=== PATIENT | female | born 1955 | race Caucasian/White ===

== ENCOUNTER 2016-11-22 06:58 | Day surgery (SDC) | payer BC ==
[~2016-11-22 06:58] MED LIST: Lactated Ringers 1,000 ML IV SCH; Lidocaine 1%/Sod Bicarbonate in NS 8.4% 1 ML Syringe IV PRN; Sodium Chloride 0.9% 10 ML Syringe FLUSH PRN
[2016-11-22] MEDS ORDERED: Lidocaine 1% 2 ML SDV ONE (07:34)
[2016-11-22] MEDS ORDERED: Propofol 200 MG/20 ML SDV ONE ×3 (07:34→08:52)
[2016-11-22] MEDS ORDERED: fentaNYL 100 MCG/2 ML SDV ONE (07:35)
[2016-11-22] MEDS ORDERED: Midazolam 1 MG/ML 2 ML SDV ONE (07:35)
--- NOTE | 2016-11-22 07:35 | PCM.PREANE ---
Preanesthetic Assessment - ANESTHESIA/TRANSFUSION/FAMILY HX Anesthesia/Transfusion History: No Prior Transfusion(s), Prior Anesthesia ( patient did get admitted for low SpO2 after cholecystectomy. 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 No CPAP at home.), shortness of breath, wheezing Cardiovascular: Reports: no symptoms, dyspnea on exertion GI: Reports: no symptoms (hiatal hernia) Other: Reports: easy bruising, diabetes (pre-diabetic) - PHYSICAL ASSESSMENT HR: 78 O2 Sat by Pulse Oximetry: 93 RR: 16 BP: 115/63 Temp: 36.6 C Height: 1.65 m Weight: 118 kg NPO Status Date: 11/21/16 NPO Status Time: 23:30 ASA Class: 3 Mental Status: alert & oriented x3 Airway Class: Mallampati = 2 Dentition: Reports: normal dentition, caries Thyro-Mental Finger Breadths: 3 Mouth Opening Finger Breadths: 3 ROM/Head Extension: full Respiratory Status: lungs clear to auscultation bilaterally Cardiovascular Status: regular rate & rhythm, normal S1, S2, no murmur, blood pressure WNL - IMAGING/EKG Impressions: EKG: sinus rhythm rate 53 or sinus ectopic atrial bradycardia/ left axis deviation - ALLERGIES Allergies/Adverse Reactions: Allergies Allergy/AdvReac Type Severity Reaction Status Date / Time No Known Allergies Allergy Verified 11/21/16 14:53 - ANESTHESIA PLAN Preop Beta Bryson: No Anesthesia Type Planned: MAC - ACKNOWLEDGEMENTS Pt an appropriate candidate for the planned anesthesia: Yes Alternatives and risks of anesthesia discussed w pt/guardian: Yes Pt/Guardian understands and agree with anesthesia plan: Yes PreAnesthesia Questionnaire - Past Health History Medical/Surgical History: Denies Medical/Surgical History HEENT History: Reports: Glaucoma, Impaired vision Cardiovascular History: Reports: None, SOB on exertion Respiratory History: Reports: Sleep apnea Other Respiratory History: Tobacco use history (40 years) Gastrointestinal History: Reports: GERD, Other (see below) Other Gastrointestinal History: History of diverticulitis in May 2015 - No prior colonoscopy. 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 OB/BYN History: yeast infections 1-2 times a year Musculoskeletal History: Reports: Arthritis Neurological History: Reports: None Psychiatric History: Reports: None Endocrine/Metabolic History: Reports: Obesity/BMI 30+ Hematologic History: Reports: None Immunologic History: Reports: None Oncologic (Cancer) History: Reports: None Dermatologic History: Reports: Psoriasis - Infectious Disease History Infectious Disease History: Reports: Chicken pox, Measles, Mumps - Past Surgical History Head Surgeries/Procedures: Reports: None HEENT Surgical History: Reports: Oral surgery, Other (see below) Other HEENT Surgeries/Procedures: glaucoma sx 3 yrs ago. wisdom teeth extraction Female Surgical History: Reports: section Musculoskeletal Surgical History: Reports: Shoulder surgery, Other (see below) Other Musculoskeletal Surgeries/Procedures:: Dr. Satya Trammell shoulder surgery. R bunionectomy Dermatological Surgical History: Reports: None - SUBSTANCE USE Smoking Status *Q: Former Smoker Tobacco Use Within Last Twelve Months: Cigarettes Second Hand Smoke Exposure: Yes Recreational Drug Use History: No - HOME MEDS Home Medications: Home Meds Melaluca Multi Meño. 1 pkt PO BID 06/09/16 [History] Cholecalciferol (Vitamin D3) [Vitamin D3] 1 tab PO DAILY 11/21/16 [History] Vitamin K2 1 tab PO DAILY 11/21/16 [History] - CURRENT (IN HOUSE) MEDS Current Meds: Current Medications Lactated Ringer's (Ringers, Lactated) 1,000 mls @ 125 mls/hr IV ASDIRECTED CHIP Stop: 11/22/16 23:00 Lidocaine/Sodium Bicarbonate (Buffered Lidocaine 1% In Ns 8.4%) 0.25 ml IV ONETIME PRN PRN Reason: Prior to IV Start Stop: 11/22/16 18:00 Sodium Chloride (Saline Flush) 10 ml FLUSH ASDIRECTED PRN PRN Reason: Keep Vein Open Stop: 11/22/16 18:00 Discontinued Medications Fentanyl (Sublimaze) Confirm Administered Dose 100 mcg .ROUTE .STK-MED ONE Stop: 11/22/16 07:36 Lidocaine HCl (Lidocaine 1%) Confirm Administered Dose 6 ml .ROUTE .STK-MED ONE Stop: 11/22/16 07:35 Midazolam HCl (Versed 1 Mg/Ml) Confirm Administered Dose 2 mg .ROUTE .STK-MED ONE Stop: 11/22/16 07:36 Propofol (Diprivan 20 Ml) Confirm Administered Dose 200 mg .ROUTE .STK-MED ONE Stop: 11/22/16 07:35
[2016-11-22] MEDS ORDERED: Lactated Ringers 1,000 ML ONE (09:09)
--- NOTE | 2016-11-22 09:09 | PCM48HPAN ---
Post Anesthesia Note - EVALUATION WITHIN 48HRS OF ANESTHETIC Vital Signs in Normal Range: Yes Patient Participated in Evaluation: Yes Respiratory Function Stable: Yes Airway Patent: Yes Cardiovascular Function Stable: Yes Hydration Status Stable: Yes Pain Control Satisfactory: Yes Nausea and Vomiting Control Satisfactory: Yes Mental Status Recovered: Yes
[2016-11-22 09:34] VITALS: BP 113/70
--- NOTE | 2016-11-22 10:07 | PCM.OPNOTE ---
- General Post-Op/Procedure Note Date of Surgery/Procedure: 11/22/16 Operative Procedure(s): 1. Diagnostic EGD with cold forceps biopsy. 2. Diagnostic colonoscopy past the splenic flexure Pre Op Diagnosis: Epigastric pain, constipation with change in bowel habits Post-Op Diagnosis: 1. Bile reflux gastritis. 2. Diverticulosis Anesthesia Technique: [facility] [place] Primary Surgeon: Marina Gonzalez Anesthesia Provider: Leandra Martini Pathology: 1. Small bowel biopsy 2. Antral biopsy 3. Distal esophageal biopsy Fluid Replacement, Intraop: 2,000 (mL crystalloid ) EBL in mLs: 1 Complications: None Condition: Good Free Text/Narrative:: INDICATION FOR PROCEDURE: The patient is a 61-year-old woman who was referred to me by STEPHANIE Jaffe for evaluation for epigastric pain, changes in bowel habits with constipation and lower abdominal pain. She has not had a prior colonoscopy. Performing a colonoscopy and EGD and the associated risks of the procedures had been discussed with the patient. The patient found these risks acceptable and agreed to proceed. DESCRIPTION OF PROCEDURE: The patient was taken to the operating room and placed in the left lateral decubitus position. After induction of adequate sedation, a bite block was placed. A standard Olympus gastroscope was inserted into the oropharynx and guided down the esophagus without difficulty. The gastroesophageal junction was appreciated at 39 cm from the teeth. There was no evidence of stricture or esophageal ulcerations. The scope was advanced into the stomach, and there was bile reflux with associated gastritis. The scope was passed into the proximal jejunum and the duodenum which were unremarkable. There were no petechiae or ulcerations. The proximal jejunum was grossly normal in appearance. Multiple cold forceps biopsies were obtained of the proximal jejunum and duodenum. The scope was withdrawn into the antrum, and additional cold forceps biopsies were obtained. The remainder of the gastric body was examined, and there were no other abnormalities. The scope was retroflexed, and there was no evidence of hiatal hernia. The scope was straightened and withdrawn to the GE junction. Additional cold forceps biopsies were obtained of the distal esophagus. The scope was withdrawn through the remainder of the esophagus and no further abnormalities were noted. The posterior oropharynx was grossly normal in appearance. The scope was fully withdrawn and attention was then turned to the colonoscopy. A digital rectal exam was performed which was unremarkable. A standard adult Olympus colonoscope was inserted into the rectum and guided under direct visualization to the ascending colon. The patient was placed in a supine position and counter pressure was utilized, but the cecum was not able to be reached, it was seen in the distance. There were no obvious lesions of the ascending colon. The scope was then slowly withdrawn through the colon. The quality of the prep was good. There was no evidence of angiodysplasias or mass lesions. Diverticulosis was present primarily in the sigmoid colon. The scope was withdrawn into the rectum and retroflexed. There was no significant prominence of the patient's internal hemorrhoids. The scope was straightened, the colon was desufflated, and the scope was withdrawn. The patient was awakened from sedation and transferred to the recovery room in stable condition having tolerated the procedure well. POSTOPERATIVE PLAN: The patient should have a repeat colonoscopy in 1 year due to inability to complete visualization of the ascending colon. The patient will follow up in approximately 7-10 days to discuss pathology of the EGD and how their symptoms are progressing. The patient is to continue MiraLAX PRN. She and I discussed hernia repair, she does have an incisional hernia and she wants to think about repair in the future. I have asked the patient to follow a GERD\ gastritis diet. The patient is to call with any worsening of symptoms or questions prior to the appointment.
== END 2016-11-22 10:10 | disposition home or self-care (01) ==
LOC: JD.SDS 06:58
PROVIDERS: ATTEND Surgery
PROC: 0DBP8ZX Excision of Rectum, Via Natural or Artificial Opening Endoscopic, Diagnostic (ICD-10-PCS; principal; 2016-11-22)
PROC: 0DB88ZX Excision of Small Intestine, Via Natural or Artificial Opening Endoscopic, Diagnostic (ICD-10-PCS; 2016-11-22)
PROC: 0DB38ZX Excision of Lower Esophagus, Via Natural or Artificial Opening Endoscopic, Diagnostic (ICD-10-PCS; 2016-11-22)
PROC: 0DB68ZX Excision of Stomach, Via Natural or Artificial Opening Endoscopic, Diagnostic (ICD-10-PCS; 2016-11-22)
DX: R19.4 Change in bowel habit (principal); R10.13 Epigastric pain; K29.60 Other gastritis without bleeding; K44.9 Diaphragmatic hernia without obstruction or gangrene; K57.30 Diverticulosis of large intestine without perforation or abscess without bleeding; Z87.891 Personal history of nicotine dependence; H40.9 Unspecified glaucoma; R73.03 Prediabetes
CPT/HCPCS: 43239; 45380; 88305; J2250; J3010; J7120; J2704

== ENCOUNTER 2019-06-09 19:56 | Emergency (ER) | payer BC ==
[2019-06-09 20:05] VITALS: BP 145/110; PULSE 82
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
[2019-06-09] MEDS ORDERED: Acetaminophen/oxyCODONE 325-5 MG Tab PO ONE (21:03)
[2019-06-09] MEDS ORDERED: Ondansetron 4 MG Tab.DIS PO ONE (21:03)
--- NOTE | 2019-06-14 06:39 | CR ---
Right humerus: Two views of the right humerus were obtained. Comparison: No prior humerus exam. Mild degenerative change is seen within the elbow as well as within the glenohumeral joint. No acute fracture or other bony abnormality is appreciated. Osteopenia is present. Impression: 1. Degenerative change and osteopenia. 2. Nothing acute is identified on right humerus exam. Diagnostic code #2
--- NOTE | 2019-06-14 06:39 | CR ---
Right tibia and fibula: AP and lateral views of the right tibia and fibula were obtained. Comparison: No previous study. Soft tissue calcifications are seen. Osteopenia is noted. No fracture or other abnormality is appreciated. Impression: 1. Findings as noted above which appear nonacute. No fracture or other abnormality is seen. Diagnostic code #2
--- NOTE | 2019-06-14 06:39 | CT ---
Head CT Technique: Multiple axial sections through the brain were obtained. Intravenous contrast was not utilized. Comparison: No prior intracranial imaging is available. Findings: Ventricles along with basal cisterns and sulci over the convexities are within normal limits for the patient's age. No abnormal parenchymal densities are seen. No evidence of intracranial hemorrhage. No midline shift or mass effect is seen. Mild soft tissue swelling noted within the right frontal scalp with slight soft tissue hematoma. Bone window settings were reviewed which show no acute calvarial abnormality. Visualized paranasal sinuses show nothing acute. Mastoid sinuses also showed nothing acute. Impression: 1. Scalp injury as noted above. 2. No acute intracranial abnormality is identified. Diagnostic code #2 I agree with preliminary report from [facility], finalized on 06/09/19, 11:01 PM Central Time
--- NOTE | 2019-06-14 06:39 | CR ---
Pelvis: AP view of the pelvis was obtained. Comparison: No previous exam. Severe joint space narrowing is noted within the left hip. Mild joint space narrowing is seen within the right hip. Bony structures are osteopenic. Sacroiliac joints are within normal limits. Nothing acute is seen. Impression: 1. Severe degenerative change within the left hip with mild degenerative change being noted within the right hip. 2. Osteopenia. No acute abnormality is identified on AP pelvis exam. Diagnostic code #2
== END 2019-06-09 23:26 | disposition home or self-care (01) ==
LOC: JD.ED 19:56
DX: S00.03XA Contusion of scalp, initial encounter (principal); S80.11XA Contusion of right lower leg, initial encounter; S70.01XA Contusion of right hip, initial encounter; S40.021A Contusion of right upper arm, initial encounter; E66.9 Obesity, unspecified; Z68.41 Body mass index [BMI] 40.0-44.9, adult; Z79.899 Other long term (current) drug therapy; W01.10XA Fall on same level from slipping, tripping and stumbling with subsequent striking against unspecified object, initial encounter
CPT/HCPCS: 70450; 72170; 73060; 73590; 99284; A9270

== ENCOUNTER 2019-06-15 14:32 | Emergency (ER) | payer BC ==
[2019-06-15 14:47] VITALS: BP 132/70; PULSE 87
[2019-06-15] MEDS ORDERED: Acetaminophen/HYDROcodone 325-5 MG Tab PO ONE (17:41)
[2019-06-15] MEDS ORDERED: Cephalexin 500 MG Cap PO STA (17:44)
--- NOTE | 2019-06-15 17:45 | EDM.PDOC ---
ED HPI GENERAL MEDICAL PROBLEM - General Chief Complaint: Lower Extremity Injury/Pain Stated Complaint: R LEG REDNESS AND SWELLING Time Seen by Provider: 06/15/19 16:59 Source of Information: Reports: Patient, Family (Daughter), Old Records (ED visit 06/09/2019) History Limitations: Reports: No Limitations - History of Present Illness INITIAL COMMENTS - FREE TEXT/NARRATIVE: Mrs. Carmona is a very pleasant 63-year-old woman who states that she fell on 06/09/2019, injuring her right lower extremity. She states that her leg began to swell right after the fall. She was seen in this ED on that date, where a workup included a CT of her head without contrast, and x-rays of her right humerus, pelvis, and right tib-fib. The CT scan of her head was negative for an acute injury, and all of the x-rays were negative for fractures, but all demonstrated osteopenia. The x-ray of her pelvis found severe left hip degenerative joint disease, and mild right hip degenerative joint disease. The patient was told that her right lower extremity would likely swell more before it decreased. The patient started taking a baby aspirin and ibuprofen for her discomfort. She has not followed up since her injury, because, she states, the tables in her doctor's office are too high. The patient now returns to the ED because her right lower extremity has in fact increased in swelling. The patient denies any recent chest pain, palpitations, or dyspnea. The patient's PCP is Dr. Maco Chavez. Right Lower Leg Pain Score (Numeric/FACES): 8 - Related Data Allergies Allergy/AdvReac Type Severity Reaction Status Date / Time No Known Allergies Allergy Verified 06/15/19 14:46 Home Meds: Home Meds Melaluca Multi Meño. 1 pkt PO BID 06/09/16 [History] Cholecalciferol (Vitamin D3) [Vitamin D3] 1 tab PO DAILY 11/21/16 [History] Vitamin K2 1 tab PO DAILY 11/21/16 [History] oxyCODONE HCl/Acetaminophen [Percocet 5-325 mg Tablet] 1 - 2 each PO Q4H PRN # 20 tablet 06/09/19 [Rx] Acetaminophen/HYDROcodone [[place]bridge 325-5 MG] 1 - 2 tab PO Q6H PRN #16 tablet 06/15 [Rx] Cephalexin [Keflex] 1 cap PO Q6H #20 capsule 06/15/19 [Rx] Past Medical History HEENT History: Reports: Glaucoma, Impaired Vision Respiratory History: Reports: Sleep Apnea (noncompliant with nightly CPAP) Gastrointestinal History: Reports: Diverticulosis (diverticulitis) Genitourinary History: Reports: Urinary Incontinence (stress incontinence) 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: Musculoskeletal History: Reports: Arthritis Endocrine/Metabolic History: Reports: Obesity/BMI 30+ Dermatologic History: Reports: Psoriasis - Infectious Disease History Infectious Disease History: Reports: Chicken Pox, Measles, Mumps - Past Surgical History HEENT Surgical History: Reports: Laser Surgery (bilateral, for glaucoma), Oral Surgery (wisdom teeth extraction) GI Surgical History: Reports: Cholecystectomy (May 2016), Colonoscopy (x 1 or 2) Female Surgical History: Reports: Section (x 1) Musculoskeletal Surgical History: Reports: Shoulder Surgery (open, 2 dislocations), Other (See Below) (Left bunionectomy) Social & Family History - Family History Family Medical History: Noncontributory HEENT: Reports: Hearing Impairment GI: Reports: Cholelithiasis Endocrine/Metabolic: Reports: Hyperthyroidism Other Endocrine/Metabolic Family History: mom Hematologic: Reports: None Dermatologic: Reports: Psoriasis Other Dermatologic Family History: brother Other Oncologic Family History: dad sarcoma - Tobacco Use Smoking Status *Q: Former Smoker Years of Tobacco use: 43 Packs/Tins Daily: 1 Month/Year Tobacco Last Used: Quit 2015 - Caffeine Use Caffeine Use: Reports: Coffee - Alcohol Use Alcohol Use History: No - Recreational Drug Use Recreational Drug Use: No - Living Situation & Occupation Living situation: Reports: , with Spouse Occupation: Unemployed Review of Systems - Review of Systems Review Of Systems: ROS reveals no pertinent complaints other than HPI. ED EXAM, GENERAL - Physical Exam Exam: See Below Exam Limited By: No Limitations General Appearance: Alert, WD/WN, No Apparent Distress Eye Exam: Bilateral Eye: EOMI, Normal Inspection Ears: Normal External Exam, Hearing Grossly Normal Nose: Normal Inspection Throat/Mouth: Normal Inspection, Normal Lips, Normal Voice, No Airway Compromise Head: Normocephalic, Other (Ecchymosis noted to the right forehead) Neck: Normal Inspection, Full Range of Motion Respiratory/Chest: No Respiratory Distress, Lungs Clear, Normal Breath Sounds, No Accessory Muscle Use, Chest Non-Tender. No: Decreased Breath Sounds, Crackles, Rhonchi, Wheezing, Stridor, Prolonged Expiration Cardiovascular: Normal Peripheral Pulses, Regular Rate, Rhythm, No Gallop, No JVD, No Murmur, No Rub Peripheral Pulses: 2+: Posterior Tibial (L), Posterior Tibial (R), Dorsalis Pedis (L), Dorsalis Pedis (R), 4+: Radial (L), Radial (R) GI/Abdominal: Normal Bowel Sounds, Soft, Non-Tender, No Organomegaly, No Distention, No Abnormal Bruit, No Mass (Female) Exam: Deferred Rectal (Female) Exam: Deferred Back Exam: Normal Inspection, Full Range of Motion, NT Extremities: Normal Capillary Refill, Other (Extensive hematoma to the medial and posterior right thigh, as well as some hematoma noted to the right calf, and extravasation of blood down to the right foot. There is considerable swelling to the right lower extremity, especially to the right leg and right foot. There is warmth and erythema to the right leg, when compared to the left, with tenderness to palpation of the right lower extremity. Neurovascular status of the right lower extremity appears to be intact.) Neurological: Alert, Oriented, Normal Cognition, No Motor/Sensory Deficits Psychiatric: Normal Affect Skin Exam: Warm, Dry, Intact, Normal Color, No Rash Course - Vital Signs Last Recorded V/S: Last Vital Signs Temp 36.9 C 06/15/19 14:44 Pulse 87 06/15/19 14:44 Resp 16 06/15/19 14:44 BP 132/70 06/15/19 14:44 Pulse Ox 96 06/15/19 14:44 - Orders/Labs/Meds Labs: Laboratory Tests 06/15/19 Range/Units 17:57 WBC 12.28 H (3.98-10.04) K/mm3 RBC 3.70 L (3.98-5.22) M/mm3 Hgb 10.6 L (11.2-15.7) gm/dl Hct 32.9 L (34.1-44.9) % MCV 88.9 (79.4-94.8) fl MCH 28.6 (25.6-32.2) pg MCHC 32.2 (32.2-35.5) g/dl RDW Std Deviation 48.3 H (36.4-46.3) fL Plt Count 248 (182-369) K/mm3 MPV 9.3 L (9.4-12.3) fl Neutrophils % (Manual) 55 (40-60) % Band Neutrophils % 0 (0-10) % Lymphocytes % (Manual) 33 (20-40) % Atypical Lymphs % 0 % Monocytes % (Manual) 9 (2-10) % Eosinophils % (Manual) 3 (0.7-5.8) % Basophils % (Manual) 0 L (0.1-1.2) Platelet Estimate Adequate RBC Morph Comment Normal Meds: Medications Discontinued Medications Generic Name Dose Route Start Last Admin Trade Name Freq PRN Reason Stop Dose Admin Hydrocodone Bitart/Acetaminophen 2 tab 06/15/19 17:41 06/15/19 17:49 [place] 325-5 Mg PO 06/15/19 17:42 2 tab ONETIME ONE Administration Cephalexin 500 mg 06/15/19 17:44 06/15/19 17:52 Keflex PO 06/15/19 17:45 500 mg ONETIME STA Administration - Re-Assessments/Exams Free Text/Narrative Re-Assessment/Exam: 06/15/19 17:42 The size of the patient's right lower extremity hematoma is sufficient enough that I'm concerned that she could be anemic, therefore I have ordered a CBC. I' m also concerned that the degree of pressure in the right lower extremity could be sufficient to cause a DVT, therefore I ordered a Doppler of the right lower extremity to evaluate for this. While I doubt that the patient has cellulitis to the right leg, it is warm and erythematous - likely due to the inflammatory properties of the hematoma, not cellulitis - however, I think it would be prudent to cover her with some antibiotics for at least a few days. I will start her on Keflex. 06/15/19 19:07 The patient's CBC is remarkable for a WBC count elevated at 12.28, but with 0% bandemia. Her H/H is mildly depressed at 10.6/32.9. The remainder of her CBC is unremarkable. The report of the Doppler ultrasound of her right lower extremity is still pending. 06/15/19 20:18 Doppler ultrasound of the right lower extremity is read by Dr. Lancaster as: 1. No evidence of deep venous thrombosis within the right lower extremity or within the left common femoral vein. 2. Subcutaneous edema within the right calf is noted. 06/15/19 20:50 Test results discussed with the patient (her daughter is no longer here). As above, she has mild anemia, but does not require a transfusion, and the Doppler ultrasound found no evidence of a DVT. As above, I will treat the patient for the possibility of cellulitis with oral Keflex, although I doubt she really has cellulitis, and I will re-prescribe some Stockbridge. I explained to the patient that the emergency department should not refill prescriptions, therefore I'm only going to provide a quantity sufficient until she can reasonably follow-up with her PCP later this week. Departure - Departure Time of Disposition: 20:52 Disposition: Home, Self-Care 01 Condition: Good Clinical Impression: Hematoma of right lower extremity - Discharge Information *PRESCRIPTION DRUG MONITORING PROGRAM REVIEWED*: Not Applicable *COPY OF PRESCRIPTION DRUG MONITORING REPORT IN PATIENT GONZALO: Not Applicable Prescriptions: Acetaminophen/HYDROcodone [[place] 325-5 MG] 1 - 2 tab PO Q6H PRN #16 tablet PRN Reason: Pain (Severe 7-10) Cephalexin [Keflex] 1 cap PO Q6H #20 capsule Instructions: Hematoma, [id number] Referrals: Maco Chavez MD [Primary Care Provider] - Forms: ED Department Discharge Additional Instructions: You were seen in the emergency room for continued swelling and pain of your right lower extremity after falling on it on 06/09/2019. Workup in the ER included a CBC and a Doppler ultrasound of your right lower extremity. The CBC found only mild anemia. You do not need a blood transfusion. The Doppler ultrasound found that you do not have a DVT in your right lower extremity. The cause of your swelling and pain is due to a subcutaneous hematoma, which causes an intense inflammatory reaction. You probably do not have cellulitis of your leg, however, you have been started on the antibiotic Keflex just to make sure. Prescriptions for the antibiotic Keflex and the opioid pain reliever Stockbridge have been provided to you. Take 1 tablet of Keflex every 6 hours, as prescribed. Finish the entire prescription unless told otherwise by a doctor. Continue to take [id number] ibuprofen, 2-3 tablets (400-600 mg) every 8 hours, with food, [id number]. Take 1 to 2 tablets of Stockbridge up to every 6 hours, as needed for pain not relieved by ibuprofen. Follow-up with your PCP, Dr. Maco Chavez, this week. If any other problems, please do not hesitate to return to the ER.
--- NOTE | 2019-06-15 20:09 | US ---
Right lower extremity deep venous ultrasound: Duplex and color Doppler evaluation was obtained of the right common femoral, proximal greater saphenous, superficial femoral, popliteal, posterior tibial and peroneal veins. Left common femoral vein was also evaluated. Findings: Subcutaneous edema is noted within the left calf. Deep veins show normal phasic flow, augmentation and compression. Impression: 1. No evidence of deep venous thrombosis within the right lower extremity or within the left common femoral vein. 2. Subcutaneous edema within the right calf is noted. Diagnostic code #2
== END 2019-06-15 21:17 | disposition home or self-care (01) ==
LOC: JD.ED 14:32
DX: S70.11XA Contusion of right thigh, initial encounter (principal); S00.83XA Contusion of other part of head, initial encounter; Z87.891 Personal history of nicotine dependence; W19.XXXA Unspecified fall, initial encounter
CPT/HCPCS: 36415; 85007; 85027; 93971; 99284; A9270; 99283

== ENCOUNTER 2019-11-17 07:58 | Emergency (ER) | payer BC ==
--- NOTE | 2019-11-17 08:30 | EDM.PDOC ---
ED HPI GENERAL MEDICAL PROBLEM - General Chief Complaint: Back Pain or Injury Stated Complaint: NECK AND SHOULDER PAIN Time Seen by Provider: 11/17/19 08:25 Source of Information: Reports: Patient, Family (spouse) History Limitations: Reports: No Limitations - History of Present Illness INITIAL COMMENTS - FREE TEXT/NARRATIVE: 64-year-old female presents to the ED with pain throughout the right side of her neck and upper shoulder on the right side. She woke with this pain this morning. She believes she may have slept wrong. She has no history of slip or fall or injury. Pain is sharp and stabbing and has a neuralgic tendency. Feel it at times in her anterior face on the right side. Most the pain is at the base of her right neck and throughout the trapezius muscle superior belly. Made her quite anxious that she was worried she was having a stroke. Blood preasure was apparently apparently elevated in the clinic yesterday in the 150s. Onset: Today Onset Date: 11/17/19 Onset Time: 08:34 (Woke with symptoms this morning.) Duration: Minutes: Location: Reports: Neck (Right neck pain), Other (Right shoulder pain) Quality: Reports: Ache, Pressure, Sharp, Stabbing Severity: Moderate (Stick component at times.) Improves with: Reports: Rest Worsens with: Reports: Movement (Movements exacerbate the pain.) Context: Reports: Other. Denies: Activity, Exercise, Lifting, Sick Contact, Trauma Associated Symptoms: Reports: No Other Symptoms (Destiny's occurrence). Denies : Confusion, Chest Pain, Cough, cough w sputum, Fever/Chills, Headaches, Loss of Appetite, Malaise, Nausea/Vomiting, Rash, Seizure, Shortness of Breath, Syncope Treatments CONCESSIONS MANAGER: Reports: Acetaminophen (Not much relief with the Tylenol this morning), Other (see below) Neck Pain Score (Numeric/FACES): 10 - Related Data Allergies Allergy/AdvReac Type Severity Reaction Status Date / Time No Known Allergies Allergy Verified 11/17/19 08:11 Home Meds: Home Meds Melaluca Multi Meño. 1 pkt PO BID 06/09/16 [History] Cholecalciferol (Vitamin D3) [Vitamin D3] 1 tab PO DAILY 11/21/16 [History] Vitamin K2 1 tab PO DAILY 11/21/16 [History] Albuterol Sulfate [Proventil Hfa] 2 puff INH Q4H PRN 11/17/19 [History] Hydrocodone/Acetaminophen [Hydrocodon-Acetaminophen 5-325] 1 tab PO Q6H PRN [History] Meloxicam 15 mg PO DAILY #7 tablet 11/17/19 [Rx] Mupirocin Oint [Bactroban Oint] 1 applic TOP TID 11/17/19 [History] [place]-3S/DHA/Epa/Fish Oil/D3 [[place] Essentials] 3 tsp PO DAILY 11/17/19 [History ] predniSONE [Prednisone] 20 mg PO ASDIRECTED #15 tablet 11/17/19 [Rx] Past Medical History - Past Health History Medical/Surgical History: Denies Medical/Surgical History HEENT History: Reports: Glaucoma, Impaired Vision Cardiovascular History: Reports: None, Hypertension (And hypertension), SOB on Exertion Respiratory History: Reports: Sleep Apnea (noncompliant with nightly CPAP) Other Respiratory History: Tobacco use history (40 years) Gastrointestinal History: Reports: Diverticulosis (diverticulitis) Other Gastrointestinal History: Hernia resulting from cholecystectomy. 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: yeast infections 1-2 times a year Musculoskeletal History: Reports: Arthritis Neurological History: Reports: None Psychiatric History: Reports: None Endocrine/Metabolic History: Reports: Obesity/BMI 30+ Hematologic History: Reports: None Immunologic History: Reports: None Oncologic (Cancer) History: Reports: None Dermatologic History: Reports: Psoriasis - Infectious Disease History Infectious Disease History: Reports: Chicken Pox, Measles, Mumps - Past Surgical History HEENT Surgical History: Reports: Laser Surgery (bilateral, for glaucoma), Oral Surgery (wisdom teeth extraction) GI Surgical History: Reports: Cholecystectomy (May 2016), Colonoscopy (x 1 or 2) Female Surgical History: Reports: Section (x 1) Musculoskeletal Surgical History: Reports: Shoulder Surgery (open, 2 dislocations), Other (See Below) (Left bunionectomy) Social & Family History - Family History Family Medical History: Noncontributory HEENT: Reports: Hearing Impairment GI: Reports: Cholelithiasis Endocrine/Metabolic: Reports: Hyperthyroidism Other Endocrine/Metabolic Family History: mom Hematologic: Reports: None Dermatologic: Reports: Psoriasis Other Dermatologic Family History: brother Other Oncologic Family History: dad sarcoma - Caffeine Use Caffeine Use: Reports: Coffee - Living Situation & Occupation Living situation: Reports: , with Spouse Occupation: Unemployed ED ROS GENERAL - Review of Systems Review Of Systems: See Below Constitutional: Denies: Fever, Chills, Malaise, Weakness, Fatigue Respiratory: Reports: No Symptoms Cardiovascular: Reports: Blood Pressure Problem Endocrine: Reports: Fatigue GI/Abdominal: Reports: No Symptoms : Reports: No Symptoms Musculoskeletal: Reports: Neck Pain, Shoulder Pain (Onset right neck and shoulder pain), Other (Chronic problems with right leg wound that is slowly healing.) Skin: Reports: Other (Skin breakdown with open wound right lower leg) Neurological: Reports: No Symptoms Psychiatric: Reports: No Symptoms Hematologic/Lymphatic: Reports: No Symptoms Immunologic: Reports: No Symptoms ED EXAM, UPPER BACK/NECK PAIN - Physical Exam Exam: See Below Exam Limited By: No Limitations General Appearance: Alert, WD/WN, Anxious, Other (Anxious. Temperature is 36.8 pulse was 82 and sinus respiratory 16 BP was mildly elevated 154/82. O2 sats of 92 to 94%.) Eye Exam: Bilateral Eye: Normal Inspection Head Exam: Atraumatic, Normocephalic. No: Scalp Lacerations, Scalp Swelling, Scalp Ecchymosis, Scalp Hematoma, Scalp Tenderness Neck Exam: Full Range of Motion, Normal Alignment, Normal Inspection, Other ( And it is to the neck particularly C7 spinous process on the right side. Most of the pain is coming from the superior belly of the right trapezius muscle which shoots up her neck and into her face at times. Has full flexion extension and lateral rotation with some increased pain with right lateral rotation and flexion in the trapezius muscle right upper back.) Nexus Criteria: No: Posterior, Midline Cervical Tenderness, Evidence of Intoxication, Altered Level of Consciousness, Focal Neurological Deficit, Painful Distraction Injuries Cardiovascular/Respiratory: Regular Rate, Rhythm, Normal Peripheral Pulses, No JVD, Normal Breath Sounds Back Exam: Normal Inspection, Full Range of Motion, Other. No: CVA Tenderness ( L), CVA Tenderness (R) Extremities: Normal Inspection (Pain to palpation throughout the superior belly of the right trapezius muscle.), Normal Range of Motion, Non-Tender, Other ( Healing wound right lower extremity) Neurologic: No Motor/Sensory Deficits, Alert, Oriented x 3 Psychiatric: Anxious Skin Exam: Normal Color, Warm/Dry Course - Vital Signs Last Recorded V/S: Last Vital Signs Temp 36.8 C 11/17/19 08:10 Pulse 82 11/17/19 08:10 Resp 16 11/17/19 08:10 BP 154/82 H 11/17/19 08:10 Pulse Ox 92 L 11/17/19 08:10 - Radiology Interpretation Free Text/Narrative:: 64-year-old female presents to the ED with acute onset of pain throughout the right upper trapezius muscle and right lateral neck. No specific known injuries. No rashes identified. There is tenderness throughout palpation of the superior belly of the right trapezius muscle which is rating up the back of her right neck. Pain appears to be certainly musculoskeletal in origin. Plan prednisone 20 mg twice daily for 5 days and then once a day in the morning for another 5 days. Meloxicam 15 mg once daily in the morning for the next 7 days to relieve pain inflammation. She already has stronger many pain medication that she is using for bilateral leg pain. If not markedly improved in 7 to 8 days. Physical therapy may be indicated. She is to keep an eye out for any development of any rash that would be collections representative of shingles. Departure - Departure Time of Disposition: 08:26 Disposition: Home, Self-Care 01 Condition: Fair Clinical Impression: Cervical pain (neck), Trapezius muscle spasm - Discharge Information *PRESCRIPTION DRUG MONITORING PROGRAM REVIEWED*: Not Applicable *COPY OF PRESCRIPTION DRUG MONITORING REPORT IN PATIENT GONZALO: Not Applicable Prescriptions: Meloxicam 15 mg PO DAILY #7 tablet predniSONE [Prednisone] 20 mg PO ASDIRECTED #15 tablet Instructions: Cervical Strain and Sprain Rehab-SportsMed Referrals: Maco Chavez MD [Primary Care Provider] - Forms: ED Department Discharge Additional Instructions: Patient in the emergency room this morning in regards to acute onset of pain across the superior belly of the right upper trapezius muscle that radiates up into the back of your right neck. The muscle spasm limits the mobility of your neck with recurrent sharp stabbing neuralgic pain in the neck and anterior face. Diode for any rashes that may develop over the next 5 to 7 days that could represent shingles. There is significant discomfort on palpation throughout the right trapezius muscle on examination as compared to the left. Does treatment to be meloxicam anti-inflammatory tablet 15 mg once daily every morning with food and prednisone 20 mg twice daily breakfast and supper for 5 days and then once in the morning only for another 5 days to relieve pain inflammation. May continue with your normal pain medication needed. Expect gradual improvement over the next 72 hours. If not markedly improved in 7 to 10 days time then follow-up with personal care physician to arrange physiotherapy consultation and management. Sepsis Event Note - Evaluation Sepsis Screening Result: No Definite Risk - Focused Exam Vital Signs: Vital Signs Temp Pulse Resp BP Pulse Ox 11/17/19 08:10 36.8 C 82 16 154/82 H 92 L Date Exam was Performed: 11/17/19 Time Exam was Performed: 08:32
== END 2019-11-17 08:45 | disposition home or self-care (01) ==
LOC: JD.ED 07:58
CPT/HCPCS: 99283

== ENCOUNTER 2019-11-18 14:31 | Inpatient (IN) | payer BC ==
[2019-11-18] MEDS ORDERED: Sodium Chloride 0.9% 10 ML Syringe FLUSH PRN ×2 (15:10→17:12)
--- NOTE | 2019-11-18 15:21 | EDM.PDOC ---
ED HPI GENERAL MEDICAL PROBLEM - General Chief Complaint: Respiratory Problem Stated Complaint: SOB/ALLERGIC REACTION TO MEDICATION Time Seen by Provider: 11/18/19 14:43 Source of Information: Reports: Patient History Limitations: Reports: No Limitations - History of Present Illness INITIAL COMMENTS - FREE TEXT/NARRATIVE: Patient is a 64-year-old female who presents with complaints of shortness of breath and orthopnea that began last night. Patient states when she went to bed last night she started becoming more short of breath. She found herself having to sit up at the edge of the bed number of times. Eventually around 4: 00 this morning she went out to the recliner to sleep because she could breathe easier sitting upright. Patient was seen in our emergency department yesterday for right shoulder pain. She was started on prednisone and meloxicam which she started yesterday morning. She denies any feeling of swelling in her mouth or. She has no rash or pruritus. Patient also notes that since this morning she has been getting the occasional "twinge" of pain in her left chest. This pain only lasts a couple seconds and then goes away but does return episodically. She reports that she had an appointment with her primary care provider, Dr. Olmstead, on Friday. She states her blood pressure at that time was higher than normal and that her oxygen saturation was lower than normal. Patient states her normal blood pressures are normally around 110 systolic, however she has been in the 150s for most of her blood pressure checks this week. She states that her oxygen saturations are normally around 96 or 97%. Her oxygen saturation on triage today is 90 to 92%. Oxygen saturation yesterday was also in the low 90. She has no known history of hypertension or congestive heart failure. She has no chronic lung pathology. Patient states that she does have an albuterol inhaler at home from when she had a previous episode of bronchitis. Her also has an albuterol nebulizer. She states that around 1:00 this morning she gave herself a treatment of the nebulizer and did not note any improvement in her symptoms. Of note, patient is recovering from a cellulitis of her right lower extremity. She is currently going to physical therapy for wound care. She also recently had a venous Doppler ultrasound of her left lower extremity due to pain. 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 Denies any diaphoresis at any point. - Related Data Allergies Allergy/AdvReac Type Severity Reaction Status Date / Time No Known Allergies Allergy Verified 11/17/19 08:11 Home Meds: Home Meds Melaluca Multi Meño. 1 pkt PO BID 06/09/16 [History] Cholecalciferol (Vitamin D3) [Vitamin D3] 1 tab PO DAILY 11/21/16 [History] Vitamin K2 1 tab PO DAILY 11/21/16 [History] Albuterol Sulfate [Proventil Hfa] 2 puff INH Q4H PRN 11/17/19 [History] Hydrocodone/Acetaminophen [Hydrocodon-Acetaminophen 5-325] 1 tab PO Q6H PRN [History] Meloxicam 15 mg PO DAILY #7 tablet 11/17/19 [Rx] Mupirocin Oint [Bactroban Oint] 1 applic TOP TID 11/17/19 [History] Solon-3S/DHA/Epa/Fish Oil/D3 [Solon Essentials] 3 tsp PO DAILY 11/17/19 [History ] predniSONE [Prednisone] 20 mg PO ASDIRECTED #15 tablet 11/17/19 [Rx] Past Medical History - Past Health History Medical/Surgical History: Denies Medical/Surgical History HEENT History: Reports: Glaucoma, Impaired Vision Cardiovascular History: Reports: None, Hypertension, SOB on Exertion Respiratory History: Reports: Sleep Apnea Other Respiratory History: Tobacco use history (40 years) Gastrointestinal History: Reports: Diverticulosis Other Gastrointestinal History: Hernia resulting from cholecystectomy. 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 TENDER History: yeast infections 1-2 times a year Musculoskeletal History: Reports: Arthritis Neurological History: Reports: None Psychiatric History: Reports: None Endocrine/Metabolic History: Reports: Obesity/BMI 30+ Hematologic History: Reports: None Immunologic History: Reports: None Oncologic (Cancer) History: Reports: None Dermatologic History: Reports: Psoriasis - Infectious Disease History Infectious Disease History: Reports: Chicken Pox, Measles, Mumps - Past Surgical History Head Surgeries/Procedures: Reports: None HEENT Surgical History: Reports: Laser Surgery, Oral Surgery GI Surgical History: Reports: Cholecystectomy, Colonoscopy Female Surgical History: Reports: Section Musculoskeletal Surgical History: Reports: Shoulder Surgery, Other (See Below) Social & Family History - Family History Family Medical History: Noncontributory HEENT: Reports: Hearing Impairment GI: Reports: Cholelithiasis Endocrine/Metabolic: Reports: Hyperthyroidism Other Endocrine/Metabolic Family History: mom Hematologic: Reports: None Dermatologic: Reports: Psoriasis Other Dermatologic Family History: brother Other Oncologic Family History: dad sarcoma - Tobacco Use Smoking Status *Q: Never Smoker - Caffeine Use Caffeine Use: Reports: Coffee - Living Situation & Occupation Living situation: Reports: , with Spouse Occupation: Unemployed ED ROS GENERAL - Review of Systems Review Of Systems: Comprehensive ROS is negative, except as noted in HPI. ED EXAM, GENERAL - Physical Exam Exam: See Below Exam Limited By: No Limitations General Appearance: Alert, WD/WN, No Apparent Distress Respiratory/Chest: Lungs Clear, Normal Breath Sounds, No Accessory Muscle Use, Chest Non-Tender, Other (Dyspneic at rest, worsens with exertion and conversation.) Cardiovascular: Normal Peripheral Pulses, Regular Rate, Rhythm, No Gallop, No JVD, No Murmur, No Rub, Other (1+ bilateral lower extremity edema) Extremities: Other (Wound to the posterior right calf. Wound is covered in dressing at this time which is changed by physical therapy. Dressing not removed at time of exam.) Neurological: Alert, Oriented, CN II-XII Intact, Normal Cognition, Normal Gait, Normal Reflexes, No Motor/Sensory Deficits Psychiatric: Normal Affect, Normal Mood Skin Exam: Warm, Dry, Intact, Normal Color, No Rash Course - Vital Signs Last Recorded V/S: Last Vital Signs Temp 97.3 F 11/18/19 22:41 Pulse 94 11/18/19 23:01 Resp 26 H 11/18/19 22:41 BP 115/72 11/18/19 23:01 Pulse Ox 94 L 11/18/19 23:01 - Orders/Labs/Meds Orders: Active Orders 24 hr Category Date Time Status Peripheral IV Care [RC] . DIRECTED Care 11/18/19 15:11 Active RT Aerosol Therapy [RC] ASDIRECTED Care 11/18/19 18:03 Active RT Aerosol Therapy [RC] ASDIRECTED Care 11/18/19 18:42 Active Venous Doppler Lwr Ext Bi [US] Stat Exams 11/18/19 20:37 Taken PROCALCITONIN [REF] Stat Lab 11/18/19 16:03 Received Sodium Chloride 0.9% [Normal Saline] 100 ml Med 11/18/19 17:15 Active IV ASDIRECTED Sodium Chloride 0.9% [Saline Flush] Med 11/18/19 15:10 Active 10 ml FLUSH ASDIRECTED PRN Sodium Chloride 0.9% [Saline Flush] Med 11/18/19 17:12 Active 10 ml FLUSH ONETIME PRN Peripheral IV Insertion Adult [OM.PC] Stat Oth 11/18/19 15:10 Ordered Medication Orders Acetaminophen (Tylenol) 650 mg PO Q4H PRN PRN Reason: Pain (Mild 1-3)/fever Albuterol/Ipratropium (Duoneb 3.0-0.5 Mg/3 Ml) 3 ml NEB Q4H PRN PRN Reason: Shortness Of Breath/wheezing Last Admin: 11/18/19 22:45 Dose: 3 ml Enoxaparin Sodium (Lovenox) 40 mg SUBCUT DAILY CHIP Sodium Chloride (Normal Saline) 100 mls @ 60 mls/hr IV ASDIRECTED CHIP Last Admin: 11/18/19 17:18 Dose: 60 mls/hr Ketorolac Tromethamine (Toradol) 30 mg IV Q8H PRN PRN Reason: Pain (moderate 4-6) Stop: 11/23/19 21:47 Last Admin: 11/18/19 22:03 Dose: 30 mg Sodium Chloride (Saline Flush) 10 ml FLUSH ASDIRECTED PRN PRN Reason: Keep Vein Open Last Admin: 11/18/19 16:19 Dose: 10 ml Sodium Chloride (Saline Flush) 10 ml FLUSH ONETIME PRN PRN Reason: Keep Vein Open Last Admin: 11/18/19 17:18 Dose: 10 ml Labs: Laboratory Tests 11/18/19 11/18/19 11/18/19 Range/Units 16:03 16:03 16:03 WBC 11.31 H (3.98-10.04) K/mm3 RBC 4.90 (3.98-5.22) M/mm3 Hgb 12.8 D (11.2-15.7) gm/dl Hct 40.3 (34.1-44.9) % MCV 82.2 D (79.4-94.8) fl MCH 26.1 (25.6-32.2) pg MCHC 31.8 L (32.2-35.5) g/dl RDW Std Deviation 56.8 H (36.4-46.3) fL Plt Count 259 (182-369) K/mm3 MPV 9.4 (9.4-12.3) fl Neut % (Auto) 69.6 (34.0-71.1) % Lymph % (Auto) 24.4 (19.3-51.7) % [place] % (Auto) 5.0 (4.7-12.5) % Eos % (Auto) 0.2 L (0.7-5.8) Baso % (Auto) 0.3 (0.1-1.2) % Neut # (Auto) 7.88 H (1.56-6.13) K/mm3 Lymph # (Auto) 2.76 (1.18-3.74) K/mm3 [place] # (Auto) 0.56 H (0.24-0.36) K/mm3 Eos # (Auto) 0.02 L (0.04-0.36) K/mm3 Baso # (Auto) 0.03 (0.01-0.08) K/mm3 Manual Slide Review Normal smear D-Dimer, Quantitative (0.19-0.50) mg/L Puncture Site ABG pH (7.35-7.45) ABG pCO2 (35.0-45.0) mmHg ABG pO2 (80.0-100.0) mmHg ABG HCO3 (22.0-26.0) meq/L ABG O2 Saturation (96.0-97.0) % ABG Base Excess (-2-2.0) Mario Test O2 Delivery Device Oxygen Flow Rate FiO2 (21.00-100.00) % Sodium 144 (136-145) mEq/L Potassium 3.9 (3.5-5.1) mEq/L Chloride 106 (98-107) mEq/L Carbon Dioxide 27 (21-32) mEq/L Anion Gap 14.9 (5-15) BUN 13 (7-18) mg/dL Creatinine 0.6 (0.55-1.02) mg/dL Est Cr Clr Drug Dosing 85.24 mL/min Estimated GFR (MDRD) > 60 (>60) mL/min BUN/Creatinine Ratio 21.7 H (14-18) Glucose 120 H (80-115) mg/dL Hemoglobin A1c (4.50-6.20) % Calcium 9.2 (8.5-10.1) mg/dL Total Bilirubin 0.3 (0.2-1.0) mg/dL AST 14 L (15-37) U/L ALT 24 (14-59) U/L Alkaline Phosphatase 66 (46-116) U/L Troponin I < 0.017 (0.00-0.056) ng/mL C-Reactive Protein (<1.0) mg/dL NT-Pro-B Natriuret Pep 201 H (0-125) pg/mL Total Protein 7.4 (6.4-8.2) g/dl Albumin 3.4 (3.4-5.0) g/dl Globulin 4.0 gm/dL Albumin/Globulin Ratio 0.9 L (1-2) 11/18/19 11/18/19 11/18/19 Range/Units 16:03 16:03 16:03 WBC (3.98-10.04) K/mm3 RBC (3.98-5.22) M/mm3 Hgb (11.2-15.7) gm/dl Hct (34.1-44.9) % MCV (79.4-94.8) fl MCH (25.6-32.2) pg MCHC (32.2-35.5) g/dl RDW Std Deviation (36.4-46.3) fL Plt Count (182-369) K/mm3 MPV (9.4-12.3) fl Neut % (Auto) (34.0-71.1) % Lymph % (Auto) (19.3-51.7) % [place] % (Auto) (4.7-12.5) % Eos % (Auto) (0.7-5.8) Baso % (Auto) (0.1-1.2) % Neut # (Auto) (1.56-6.13) K/mm3 Lymph # (Auto) (1.18-3.74) K/mm3 [place] # (Auto) (0.24-0.36) K/mm3 Eos # (Auto) (0.04-0.36) K/mm3 Baso # (Auto) (0.01-0.08) K/mm3 Manual Slide Review D-Dimer, Quantitative 1.14 H (0.19-0.50) mg/L Puncture Site ABG pH (7.35-7.45) ABG pCO2 (35.0-45.0) mmHg ABG pO2 (80.0-100.0) mmHg ABG HCO3 (22.0-26.0) meq/L ABG O2 Saturation (96.0-97.0) % ABG Base Excess (-2-2.0) Mario Test O2 Delivery Device Oxygen Flow Rate FiO2 (21.00-100.00) % Sodium (136-145) mEq/L Potassium (3.5-5.1) mEq/L Chloride (98-107) mEq/L Carbon Dioxide (21-32) mEq/L Anion Gap (5-15) BUN (7-18) mg/dL Creatinine (0.55-1.02) mg/dL Est Cr Clr Drug Dosing mL/min Estimated GFR (MDRD) (>60) mL/min BUN/Creatinine Ratio (14-18) Glucose (80-115) mg/dL Hemoglobin A1c 6.20 (4.50-6.20) % Calcium (8.5-10.1) mg/dL Total Bilirubin (0.2-1.0) mg/dL AST (15-37) U/L ALT (14-59) U/L Alkaline Phosphatase (46-116) U/L Troponin I (0.00-0.056) ng/mL C-Reactive Protein 0.5 (<1.0) mg/dL NT-Pro-B Natriuret Pep (0-125) pg/mL Total Protein (6.4-8.2) g/dl Albumin (3.4-5.0) g/dl Globulin gm/dL Albumin/Globulin Ratio (1-2) 11/18/19 11/18/19 Range/Units 18:03 20:19 WBC (3.98-10.04) K/mm3 RBC (3.98-5.22) M/mm3 Hgb (11.2-15.7) gm/dl Hct (34.1-44.9) % MCV (79.4-94.8) fl MCH (25.6-32.2) pg MCHC (32.2-35.5) g/dl RDW Std Deviation (36.4-46.3) fL Plt Count (182-369) K/mm3 MPV (9.4-12.3) fl Neut % (Auto) (34.0-71.1) % Lymph % (Auto) (19.3-51.7) % [place] % (Auto) (4.7-12.5) % Eos % (Auto) (0.7-5.8) Baso % (Auto) (0.1-1.2) % Neut # (Auto) (1.56-6.13) K/mm3 Lymph # (Auto) (1.18-3.74) K/mm3 [place] # (Auto) (0.24-0.36) K/mm3 Eos # (Auto) (0.04-0.36) K/mm3 Baso # (Auto) (0.01-0.08) K/mm3 Manual Slide Review D-Dimer, Quantitative (0.19-0.50) mg/L Puncture Site Lt radial ABG pH 7.41 (7.35-7.45) ABG pCO2 44.1 (35.0-45.0) mmHg ABG pO2 65.0 L (80.0-100.0) mmHg ABG HCO3 27.6 H (22.0-26.0) meq/L ABG O2 Saturation 90.8 L (96.0-97.0) % ABG Base Excess 3.0 H (-2-2.0) Mario Test Positive O2 Delivery Device Nasal cannula Oxygen Flow Rate 2.0 FiO2 0.00 L (21.00-100.00) % Sodium (136-145) mEq/L Potassium (3.5-5.1) mEq/L Chloride (98-107) mEq/L Carbon Dioxide (21-32) mEq/L Anion Gap (5-15) BUN (7-18) mg/dL Creatinine (0.55-1.02) mg/dL Est Cr Clr Drug Dosing mL/min Estimated GFR (MDRD) (>60) mL/min BUN/Creatinine Ratio (14-18) Glucose (80-115) mg/dL Hemoglobin A1c (4.50-6.20) % Calcium (8.5-10.1) mg/dL Total Bilirubin (0.2-1.0) mg/dL AST (15-37) U/L ALT (14-59) U/L Alkaline Phosphatase (46-116) U/L Troponin I < 0.017 (0.00-0.056) ng/mL C-Reactive Protein (<1.0) mg/dL NT-Pro-B Natriuret Pep (0-125) pg/mL Total Protein (6.4-8.2) g/dl Albumin (3.4-5.0) g/dl Globulin gm/dL Albumin/Globulin Ratio (1-2) Meds: Medications Generic Name Dose Route Start Last Admin Trade Name Sarah PRN Reason Stop Dose Admin Acetaminophen 650 mg 11/18/19 21:46 Tylenol PO Q4H PRN Pain (Mild 1-3)/fever Albuterol/Ipratropium 3 ml 11/18/19 21:46 11/18/19 22:45 Duoneb 3.0-0.5 Mg/3 Ml NEB 3 ml Q4H PRN Administration Shortness Of Breath/wheezing Enoxaparin Sodium 40 mg 11/19/19 09:00 Lovenox SUBCUT DAILY CHIP Sodium Chloride 100 mls @ 60 mls/hr 11/18/19 17:15 11/18/19 17:18 Normal Saline IV 60 mls/hr ASDIRECTED CHIP Administration Ketorolac Tromethamine 30 mg 11/18/19 21:46 11/18/19 22:03 Toradol IV 11/23/19 21:47 30 mg Q8H PRN Administration Pain (moderate 4-6) Sodium Chloride 10 ml 11/18/19 15:10 11/18/19 16:19 Saline Flush FLUSH 10 ml ASDIRECTED PRN Administration Keep Vein Open Sodium Chloride 10 ml 11/18/19 17:12 11/18/19 17:18 Saline Flush FLUSH 10 ml ONETIME PRN Administration Keep Vein Open Discontinued Medications Generic Name Dose Route Start Last Admin Trade Name Freteresa PRN Reason Stop Dose Admin Albuterol/Ipratropium 3 ml 11/18/19 18:03 11/18/19 18:20 Duoneb 3.0-0.5 Mg/3 Ml NEB 11/18/19 18:04 3 ml ONETIME ONE Administration Albuterol/Ipratropium 3 ml 11/18/19 18:42 11/18/19 19:32 Duoneb 3.0-0.5 Mg/3 Ml NEB 11/18/19 18:43 3 ml ONETIME ONE Administration Hydralazine HCl 10 mg 11/18/19 19:48 11/18/19 19:59 Apresoline IVPUSH 11/18/19 19:49 10 mg ONETIME ONE Administration Iopamidol 100 ml 11/18/19 17:12 11/18/19 17:18 Isovue-370 (76%) IVPUSH 11/18/19 17:13 100 ml ONETIME ONE Administration Ketorolac Tromethamine Confirm 11/18/19 22:01 11/18/19 22:06 Toradol Administered 11/18/19 22:02 Not Given Dose 30 mg .ROUTE .[facility] - Re-Assessments/Exams Free Text/Narrative Re-Assessment/Exam: 11/18/19 18:06 Patient's work-up was significant for WBC elevated 11.31, proBNP 201, glucose 120, d-dimer 1.14. Patient has been requiring 2 L of oxygen via nasal cannula. Saturation on room air was as low as 87%. She is saturating from 93 to 95% on 2 L via nasal cannula. CT angios of her chest was completed which showed no pulmonary emboli, however the study was less than optimal and very distal subsegmental pulmonary emboli could be missed. On reexam, patient does have a mild expiratory wheeze throughout her lung [place] which was not present on her original physical exam.. We will complete an ABG as well as a DuoNeb treatment. Have also ordered an influenza screen. After these results are back I will speak to the hospitalist to discuss possible observation admission for hypoxia. 11/18/19 20:42 Dr. Reyez was here and received report on the patient. She requested that a venous Doppler of her bilateral lower extremities be completed and she will admit. 11/18/192144 Venous Doppler ultrasound of the bilateral lower extremities was negative for any evidence of DVT. Dr. Reyez was updated. Departure - Departure Time of Disposition: 20:42 Disposition: Refer to Observation Condition: Fair Clinical Impression: Hypoxemia - Discharge Information Sepsis Event Note - Evaluation Sepsis Screening Result: No Definite Risk - Focused Exam Vital Signs: Vital Signs Temp Pulse Resp BP Pulse Ox Pulse Ox 11/18/19 19:34 94 L 11/18/19 18:03 95 11/18/19 16:18 93 L 11/18/19 14:43 97 F 98 18 158/103 H 93 L Date Exam was Performed: 11/18/19 Time Exam was Performed: 23:09 - My Orders Last 24 Hours: My Active Orders 11/18/19 15:10 Sodium Chloride 0.9% [Saline Flush] 10 ml FLUSH ASDIRECTED PRN Peripheral IV Insertion Adult [OM.PC] Stat 11/18/19 15:11 Peripheral IV Care [RC] . DIRECTED 11/18/19 16:03 PROCALCITONIN [REF] Stat 11/18/19 17:12 Sodium Chloride 0.9% [Saline Flush] 10 ml FLUSH ONETIME PRN 11/18/19 17:15 Sodium Chloride 0.9% [Normal Saline] 100 ml IV ASDIRECTED 11/18/19 18:03 RT Aerosol Therapy [RC] ASDIRECTED 11/18/19 18:42 RT Aerosol Therapy [RC] ASDIRECTED 11/18/19 20:37 Venous Doppler Lwr Ext Bi [US] Stat - Assessment/Plan Last 24 Hours: My Active Orders 11/18/19 15:10 Sodium Chloride 0.9% [Saline Flush] 10 ml FLUSH ASDIRECTED PRN Peripheral IV Insertion Adult [OM.PC] Stat 11/18/19 15:11 Peripheral IV Care [RC] . DIRECTED 11/18/19 16:03 PROCALCITONIN [REF] Stat 11/18/19 17:12 Sodium Chloride 0.9% [Saline Flush] 10 ml FLUSH ONETIME PRN 11/18/19 17:15 Sodium Chloride 0.9% [Normal Saline] 100 ml IV ASDIRECTED 11/18/19 18:03 RT Aerosol Therapy [RC] ASDIRECTED 11/18/19 18:42 RT Aerosol Therapy [RC] ASDIRECTED 11/18/19 20:37 Venous Doppler Lwr Ext Bi [US] Stat
--- NOTE | 2019-11-18 15:47 | CR ---
Chest: 2 views of the chest were obtained. Comparison: No prior chest imaging is available. Heart size is normal. Tortuous thoracic aorta is noted. Lungs are clear with no acute parenchymal change. Bowel is interposed between liver and diaphragm causing some air underneath the hemidiaphragm on the right side which is a normal variant. Bony structures are osteopenic. Slight degenerative change is noted within the spine. Previous resection of the distal right clavicle is noted. Impression: 1. Findings as noted above. 2. Nothing acute is seen. Diagnostic code #2 This report was dictated in [place] Standard Time
[2019-11-18] MEDS ORDERED: Iopamidol 755 Mg/ML 100 ML Bottle IVPUSH ONE (17:12)
[2019-11-18] MEDS ORDERED: Sodium Chloride 0.9% 100 ML IV SCH (17:15)
--- NOTE | 2019-11-18 17:31 | CT ---
CT chest Technique: Multiple axial sections through the chest were obtained. Intravenous contrast was utilized. Study performed as pulmonary) protocol. Findings: Pulmonary arteries are slightly less than optimally opacified. There are no filling defects within the main or segmental branches or proximal subsegmental branches. Very distal subsegmental pulmonary emboli could be missed. Aorta shows no aneurysm. Mediastinum and hilar regions show no adenopathy. No axillary adenopathy is seen. Lungs are clear with no acute parenchymal change. Bone window settings were reviewed which shows no acute osseous finding. Visualized upper abdominal structures shows no discrete abnormality. Previous cholecystectomy is noted. Impression: 1. Pulmonary arteries are slightly less than optimally opacified as noted above. No findings of pulmonary embolism within the main, segmental or proximal subsegmental branches. 2. Nothing acute is appreciated on CT study of the chest. Diagnostic code #2 Study was dictated in [place] Standard Time
[2019-11-18] MEDS ORDERED: Albuterol/Ipratropium 3.0-0.5 MG/3 ML Neb Soln NEB ONE ×2 (18:03→18:42)
[2019-11-18] MEDS ORDERED: hydrALAZINE 20 MG/ML SDV IVPUSH ONE (19:48)
[2019-11-18] MEDS ORDERED: Ketorolac 30 MG/ML SDV ONE (22:01)
[2019-11-18] MEDS: Ketorolac 30 MG/ML SDV IV PRN (22:03)
[2019-11-18 22:12] LABS: HEMOGLOBIN A1C 6.2 % (4.50-6.20)
[2019-11-18] MEDS: Albuterol/Ipratropium 3.0-0.5 MG/3 ML Neb Soln NEB PRN (22:45)
[2019-11-19] MEDS: Ketorolac 30 MG/ML SDV IV PRN (04:28)
--- NOTE | 2019-11-19 07:23 | US ---
Bilateral lower extremity deep venous ultrasound: Duplex and color Doppler evaluation was obtained of the right common femoral, proximal greater saphenous, superficial femoral veins. Veins from the knee and inferior could not be evaluated due to bandage. Left common femoral, proximal greater saphenous, superficial femoral, popliteal, posterior tibial and peroneal veins were also evaluated. Findings: Veins above the knee within the right lower extremity show normal augmentation, compression and phasic flow. Veins within the left lower extremity show normal compression, phasic flow and augmentation. Impression: 1. No evidence of deep venous thrombosis within either lower extremity as described above. Diagnostic code #1 This report was dictated in [place] Standard Time I agree with preliminary report from [facility], finalized on 11/18/19, 10:35 PM Central Time
[2019-11-19] MEDS: Enoxaparin 40 MG/0.4 ML Syringe SUBCUT SCH (08:20)
[2019-11-19] MEDS: Acetaminophen 325 MG Tab PO PRN ×2 (08:28→16:03)
[2019-11-19] MEDS ORDERED: Morphine 2 MG/ML SYRINGE IVPUSH PRN (08:35)
[2019-11-19] MEDS ORDERED: Methocarbamol 500 MG Tab PO PRN (08:35)
[2019-11-19] MEDS ORDERED: Cyclobenzaprine 10 MG Tab PO PRN ×2 (11:40→21:00)
[2019-11-19] MEDS ORDERED: Cyclobenzaprine 10 MG Tab PO ONE (13:56)
[2019-11-19] MEDS ORDERED: Trolamine Salicylate/Aloe Vera 10% Crm 85 GM Tube TOP PRN (14:12)
[2019-11-19] MEDS ORDERED: Mupirocin Oint 22 GM Tube TOP SCH (17:00)
[2019-11-19] MEDS: Albuterol/Ipratropium 3.0-0.5 MG/3 ML Neb Soln NEB PRN ×2 (18:13→23:28)
--- NOTE | 2019-11-19 20:45 | PCM.HP.2 ---
H&P History of Present Illness - General Date of Service: 11/18/19 Admit Problem/Dx: Admission Diagnosis/Problem Admission Diagnosis/Problem Hypoxia - History of Present Illness Initial Comments - Free Text/Narative: Patient is a 64-year-old female who presents with complaints of shortness of breath and orthopnea that began last night. Patient states when she went to bed last night she started becoming more short of breath. She found herself having to sit up at the edge of the bed number of times. Eventually around 4: 00 this morning she went out to the recliner to sleep because she could breathe easier sitting upright. Patient was seen in our emergency department yesterday for right shoulder pain. She was started on prednisone and meloxicam which she started yesterday morning. She denies any feeling of swelling in her mouth or. She has no rash or pruritus. Patient also notes that since this morning she has been getting the occasional "twinge" of pain in her left chest. This pain only lasts a couple seconds and then goes away but does return episodically. She reports that she had an appointment with her primary care provider, Dr. Olmstead, on Friday. She states her blood pressure at that time was higher than normal and that her oxygen saturation was lower than normal. Patient states her normal blood pressures are normally around 110 systolic, however she has been in the 150s for most of her blood pressure checks this week. She states that her oxygen saturations are normally around 96 or 97%. Her oxygen saturation on triage today is 90 to 92%. Oxygen saturation yesterday was also in the low 90. She has no known history of hypertension or congestive heart failure. She has no chronic lung pathology. Patient states that she does have an albuterol inhaler at home from when she had a previous episode of bronchitis. Her also has an albuterol nebulizer. She states that around 1:00 this morning she gave herself a treatment of the nebulizer and did not note any improvement in her symptoms. Of note, patient is recovering from a cellulitis of her right lower extremity. She is currently going to physical therapy for wound care. She also recently had a venous Doppler ultrasound of her left lower extremity due to pain. 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 Denies any diaphoresis at any point. Upper Back Pain Score (Numeric/FACES): 8 - Related Data Allergies/Adverse Reactions: Allergies Allergy/AdvReac Type Severity Reaction Status Date / Time No Known Allergies Allergy Verified 11/17/19 08:11 Home Medications: Home Meds Melaluca Multi Meño. 1 pkt PO BID 06/09/16 [History] Cholecalciferol (Vitamin D3) [Vitamin D3] 1 tab PO DAILY 11/21/16 [History] Vitamin K2 1 tab PO DAILY 11/21/16 [History] Albuterol Sulfate [Proventil Hfa] 2 puff INH Q4H PRN 11/17/19 [History] Hydrocodone/Acetaminophen [Hydrocodon-Acetaminophen 5-325] 1 tab PO Q6H PRN [History] Meloxicam 15 mg PO DAILY #7 tablet 11/17/19 [Rx] Mupirocin Oint [Bactroban Oint] 1 applic TOP ASDIRECTED 11/17/19 [History] [place]-3S/DHA/Epa/Fish Oil/D3 [[place] Essentials] 3 tsp PO DAILY 11/17/19 [History ] predniSONE [Prednisone] 20 mg PO ASDIRECTED #15 tablet 11/17/19 [Rx] Past Medical History - Past Health History Medical/Surgical History: Denies Medical/Surgical History HEENT History: Reports: Glaucoma, Impaired Vision Cardiovascular History: Reports: None, Hypertension, SOB on Exertion Respiratory History: Reports: Sleep Apnea Other Respiratory History: Tobacco use history (40 years) Gastrointestinal History: Reports: Diverticulosis Other Gastrointestinal History: Hernia resulting from cholecystectomy. Genitourinary History: Reports: Urinary Incontinence Other Genitourinary History: kidney infections [employer]TI[employer] FINISHER History: Reports: Other OB/BYN History: yeast infections 1-2 times a year Musculoskeletal History: Reports: Arthritis Neurological History: Reports: None Psychiatric History: Reports: None Endocrine/Metabolic History: Reports: Obesity/BMI 30+ Hematologic History: Reports: None Immunologic History: Reports: None Oncologic (Cancer) History: Reports: None Dermatologic History: Reports: Psoriasis - Infectious Disease History Infectious Disease History: Reports: Chicken Pox, Measles, Mumps - Past Surgical History Head Surgeries/Procedures: Reports: None HEENT Surgical History: Reports: Laser Surgery, Oral Surgery GI Surgical History: Reports: Cholecystectomy, Colonoscopy Female Surgical History: Reports: Section Musculoskeletal Surgical History: Reports: Shoulder Surgery, Other (See Below) Social & Family History - Family History Family Medical History: Noncontributory HEENT: Reports: Hearing Impairment GI: Reports: Cholelithiasis Endocrine/Metabolic: Reports: Hyperthyroidism Other Endocrine/Metabolic Family History: mom Hematologic: Reports: None Dermatologic: Reports: Psoriasis Other Dermatologic Family History: brother Other Oncologic Family History: dad sarcoma - Tobacco Use Smoking Status *Q: Never Smoker Used Tobacco, but Quit: Yes Month/Year Tobacco Last Used: 08/15 Second Hand Smoke Exposure: Yes - Caffeine Use Caffeine Use: Reports: Coffee Caffeine Use Comment: Drinks 1.5 pots of coffe a day and 12 ounce can of coke - Recreational Drug Use Recreational Drug Use: No - Living Situation & Occupation Living situation: Reports: , with Spouse Occupation: Unemployed H&P Review of Systems - Review of Systems: Review Of Systems: See Below General: Reports: Malaise, Weakness, Fatigue. Denies: Fever, Chills, Night Sweats, Diaphoresis, Decreased Appetite, Weight Loss, Weight Gain HEENT: Denies: Headaches, Rhinitis, Post Nasal Drip, Sinus Congestion, Sore Throat, Vertigo, Visual Changes Pulmonary: Reports: Shortness of Breath, Other (stridor). Denies: Pleuritic Chest Pain, Cough, Sputum Cardiovascular: Reports: Dyspnea on Exertion, Orthopnea, PND, Edema, Lightheadedness. Denies: Chest Pain, Palpitations, Syncope, Claudication Gastrointestinal: Denies: Abdominal Pain, Anorexia, Constipation, Diarrhea, Distension, Flatus, Nausea, Vomiting Genitourinary: Reports: Incontinence. Denies: Dysuria, Frequency, Burning, Pain , Urgency Musculoskeletal: Reports: Neck Pain, Muscle Pain, Muscle Stiffness. Denies: Joint Pain, Joint Swelling Skin: Reports: Wound. Denies: Cyanosis, Jaundice, Mottled Psychiatric: Reports: Depression, Mood Lability, Anxiety. Denies: Confusion, Agitation Neurological: Denies: Confusion, Dizziness, Headache, Numbness, Paresthesia Exam - Exam Exam: See Below - Vital Signs Vital Signs: Last Vital Signs Temp 97.8 F 11/19/19 16:03 Pulse 89 11/19/19 15:21 Resp 20 11/19/19 15:20 BP 144/89 H 11/19/19 15:20 Pulse Ox 90 L 11/19/19 18:14 Weight: 122.016 kg - Exam Physical Exam Comments:: Exam Limited By: Body habitus General Appearance: Alert, WD/WN, mild to moderate Distress Respiratory/Chest: Lungs Clear, Decreased Breath Sounds, No Accessory Muscle Use , Chest Non-Tender Cardiovascular: Normal Peripheral Pulses, Regular Rate, Rhythm, No Gallop, No JVD, No Murmur, No Rub, Other (2+ bilateral lower extremity edema) Extremities: Other (Wound to the posterior right calf. Wound is covered in dressing at this time which is changed by physical therapy) Neurological: Alert, Oriented, CN II-XII Intact, Normal Cognition, Normal Gait, Normal Reflexes, No Motor/Sensory Deficits Psychiatric: Normal Affect, anxious Mood - Patient Data Result Diagrams: 11/19/19 05:44 11/19/19 05:44 Sepsis Event Note - Evaluation Sepsis Screening Result: No Definite Risk - Focused Exam Vital Signs: Vital Signs Temp Pulse Resp BP Pulse Ox Pulse Ox 11/19/19 18:14 90 L 11/19/19 16:03 97.8 F 11/19/19 15:21 89 92 L 11/19/19 15:20 97.9 F 81 20 144/89 H 93 L 11/19/19 14:29 97.9 F 83 20 142/90 H 93 L 11/19/19 14:23 79 141/93 H 92 L 11/19/19 10:02 75 132/86 93 L 11/19/19 09:48 75 143/87 H 93 L 11/19/19 09:32 73 144/98 H 94 L 11/19/19 09:17 74 142/84 H 94 L 11/19/19 09:02 77 139/84 94 L 11/19/19 08:47 78 145/86 H 94 L Date Exam was Performed: 11/22/19 Time Exam was Performed: 15:09 - Problem List (1) Hypoxemia SNOMED Code(s): 603907867 ICD Code: R09.02 - HYPOXEMIA Status: Acute Current Visit: Yes (2) Morbid (severe) obesity due to excess calories SNOMED Code(s): 982381014, 369302671 ICD Code: E66.01 - MORBID (SEVERE) OBESITY DUE TO EXCESS CALORIES Status: Acute Current Visit: Yes (3) Sleep apnea SNOMED Code(s): 25390370 ICD Code: G47.30 - SLEEP APNEA, UNSPECIFIED Status: Acute Current Visit: Yes (4) Uncontrolled hypertension SNOMED Code(s): 35857273, 18198932 ICD Code: I10 - ESSENTIAL (PRIMARY) HYPERTENSION Status: Acute Current Visit: Yes (5) Ex-smoker SNOMED Code(s): 2595712 ICD Code: Z87.891 - PERSONAL HISTORY OF NICOTINE DEPENDENCE Status: Acute Current Visit: Yes (6) Open wound knee/leg with tendon involvment SNOMED Code(s): 581804769 ICD Code: S81.009A - UNSPECIFIED OPEN WOUND, UNSPECIFIED KNEE, INITIAL ENCOUNTER; S81.809A - UNSPECIFIED OPEN WOUND, UNSPECIFIED LOWER LEG, INIT ENCNTR ; S91.009A - UNSPECIFIED OPEN WOUND, UNSPECIFIED ANKLE, INITIAL ENCOUNTER Status: Acute Current Visit: Yes (7) Cervical pain (neck) SNOMED Code(s): 55879018 ICD Code: M54.2 - CERVICALGIA Status: Acute Current Visit: No Problem List Initiated/Reviewed/Updated: Yes Assessment/Plan Comment:: Hypoxemia Sleep apnea, equivocal Ex smoker Morbid obesity Worsening shortness of breath on admission Does not appear to have an infectious process other than her leukocytosis however there is no left shift or other accompanying symptoms PLAN - CTA chest - Doppler LE - O2 supplementation - Overnight pulse oxymetry - Repeat ABGs in AM - RT evaluation - Incentive spirometry Uncontrolled hypertension BP on admission 158/103 PLAN - Reconcile home medications once available - PRN hydralazine 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 - Mortality Measure Prognosis:: Poor
--- NOTE | 2019-11-19 20:45 | PCM.PN ---
- General Info Date of Service: 11/19/19 Subjective Update: Feeling ok Slept so so Still having neck pain - Patient Data Vitals - Most Recent: Last Vital Signs Temp 97.8 F 11/19/19 16:03 Pulse 89 11/19/19 15:21 Resp 20 11/19/19 15:20 BP 144/89 H 11/19/19 15:20 Pulse Ox 90 L 11/19/19 18:14 Weight - Most Recent: 122.016 kg Comments:: Physical exam confounded by body habitus - Exam Quality Assessment: Supplemental Oxygen General: Alert, Oriented, Cooperative, Mild Distress HEENT: Pupils Equal, Pupils Reactive, Mucous Membr. Moist/[place] Neck: Supple, Trachea Midline, No Thyromegaly Lungs: Decreased Breath Sounds, Stridor. No: Crackles, Rales, Rhonchi, Wheezing Cardiovascular: Regular Rate, Regular Rhythm. No: Murmurs, Gallops, Rubs GI/Abdominal Exam: Distended. No: Guarding, Rigid, Rebound, Tender Extremities: Pedal Edema (+2), Other (wound dressing without any soiling) Wound/Incisions: Dressing Dry and Intact, No Drainage Neurological: No New Focal Deficit Sepsis Event Note - Evaluation Sepsis Screening Result: No Definite Risk - Focused Exam Vital Signs: Vital Signs Temp Pulse Resp BP Pulse Ox Pulse Ox 11/19/19 18:14 90 L 11/19/19 16:03 97.8 F 11/19/19 15:21 89 92 L 11/19/19 15:20 97.9 F 81 20 144/89 H 93 L 11/19/19 14:29 97.9 F 83 20 142/90 H 93 L 11/19/19 14:23 79 141/93 H 92 L 11/19/19 10:02 75 132/86 93 L 11/19/19 09:48 75 143/87 H 93 L 11/19/19 09:32 73 144/98 H 94 L 11/19/19 09:17 74 142/84 H 94 L 11/19/19 09:02 77 139/84 94 L 11/19/19 08:47 78 145/86 H 94 L Date Exam was Performed: 11/22/19 Time Exam was Performed: 15:15 - Problem List & Annotations (1) Ex-smoker SNOMED Code(s): 5409430 Code(s): Z87.891 - PERSONAL HISTORY OF NICOTINE DEPENDENCE Status: Acute Current Visit: Yes (2) Hypoxemia SNOMED Code(s): 760188631 Code(s): R09.02 - HYPOXEMIA Status: Acute Current Visit: Yes (3) Morbid (severe) obesity due to excess calories SNOMED Code(s): 588490004, 720541952 Code(s): E66.01 - MORBID (SEVERE) OBESITY DUE TO EXCESS CALORIES Status: Acute Current Visit: Yes (4) Open wound knee/leg with tendon involvment SNOMED Code(s): 288975931 Code(s): S81.009A - UNSPECIFIED OPEN WOUND, UNSPECIFIED KNEE, INITIAL ENCOUNTER; S81.809A - UNSPECIFIED OPEN WOUND, UNSPECIFIED LOWER LEG, INIT ENCNTR ; S91.009A - UNSPECIFIED OPEN WOUND, UNSPECIFIED ANKLE, INITIAL ENCOUNTER Status: Acute Current Visit: Yes (5) Sleep apnea SNOMED Code(s): 60500217 Code(s): G47.30 - SLEEP APNEA, UNSPECIFIED Status: Acute Current Visit: Yes (6) Uncontrolled hypertension SNOMED Code(s): 92824831, 21711747 Code(s): I10 - ESSENTIAL (PRIMARY) HYPERTENSION Status: Acute Current Visit: Yes (7) Cervical pain (neck) SNOMED Code(s): 06996981 Code(s): M54.2 - CERVICALGIA Status: Acute Current Visit: No (8) Hypoxia SNOMED Code(s): 370650572 Code(s): R09.02 - HYPOXEMIA Status: Chronic Current Visit: No - Problem List Review Problem List Initiated/Reviewed/Updated: No - Plan Plan:: Hypoxemia Sleep apnea, equivocal Ex smoker Morbid obesity Worsening shortness of breath on admission Does not appear to have an infectious process other than her leukocytosis however there is no left shift or other accompanying symptoms CTA chest reported negative as well as doppler of lower extremities so problem is not thrombotic Patient has not been formally diagnosed with sleep apnea however on nasal cannula her oxygenation decreased overnight to the mid to low 80s ABGs this AM still with hypoxemia Patient likely has KHUSHBOO superimposed with OHS and central sleep apnea PLAN - Continue incentive spirometer - F/U infectious work up - BiPAP this evening with overnight oximetry - Echocardiogram ordered Uncontrolled hypertension BP trend 113-133/72-76 Likely has pulmonary hypertension PLAN - Continue home medications - PRN hydralazine 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
[2019-11-19] MEDS: Acetaminophen/HYDROcodone 325-5 MG Tab PO PRN (20:53)
[2019-11-20] MEDS: Naproxen 500 MG Tab PO PRN ×2 (03:53→17:49)
[2019-11-20] MEDS: Acetaminophen/HYDROcodone 325-5 MG Tab PO PRN ×3 (03:53→20:54)
[2019-11-20] MEDS: Enoxaparin 40 MG/0.4 ML Syringe SUBCUT SCH (08:03)
[2019-11-20] MEDS: Cyclobenzaprine 10 MG Tab PO SCH ×3 (12:08→20:50)
--- NOTE | 2019-11-20 18:27 | PCM.PN ---
- General Info Date of Service: 11/20/19 Subjective Update: BM yesterday Slept OK Tolerating diet - Patient Data Vitals - Most Recent: Last Vital Signs Temp 97.9 F 11/20/19 15:18 Pulse 100 11/20/19 15:18 Resp 16 11/20/19 15:18 BP 134/89 11/20/19 15:18 Pulse Ox 92 L 11/20/19 15:18 Weight - Most Recent: 121.699 kg I&O - Last 24 Hours: Intake & Output 11/20/19 11/20/19 11/20/19 06:59 14:59 22:59 Intake Total 800 240 940 Output Total 1400 500 Balance -600 240 440 Lab Results Last 24 Hours: Laboratory Results - last 24 hr 11/18/19 11/20/19 Range/Units 16:03 12:12 Procalcitonin <0.05 (<0.10) ng/mL Mycoplasma pneumon IgM Negative (NEGATIVE) Med Orders - Current: Current Medications Hydrocodone Bitart/Acetaminophen ([place] 325-5 Mg) 1 tab PO Q6H PRN PRN Reason: Pain Last Admin: 11/20/19 12:08 Dose: 1 tab Albuterol/Ipratropium (Duoneb 3.0-0.5 Mg/3 Ml) 3 ml NEB Q4H PRN PRN Reason: Shortness Of Breath/wheezing Last Admin: 11/19/19 23:28 Dose: 3 ml Cyclobenzaprine HCl (Flexeril) 10 mg PO TID [facility] Last Admin: 11/20/19 16:00 Dose: Not Given Enoxaparin Sodium (Lovenox) 40 mg SUBCUT DAILY [facility] Last Admin: 11/20/19 08:03 Dose: 40 mg Methylprednisolone (Medrol) 8 mg PO BEDTIME [facility] Stop: 11/20/19 21:01 Methylprednisolone (Medrol) 4 mg PO QID [facility] Stop: 11/21/19 21:01 Methylprednisolone (Medrol) 4 mg PO TIDPC [facility] Stop: 11/22/19 19:01 Methylprednisolone (Medrol) 4 mg PO BID [facility] Stop: 11/23/19 21:01 Methylprednisolone (Medrol) 4 mg PO DAILY [facility] Stop: 11/24/19 09:01 Mupirocin (Bactroban Oint) 0 gm TOP ASDIRECTED [facility] Naproxen (Naprosyn) 500 mg PO Q12H PRN PRN Reason: Pain Last Admin: 11/20/19 17:49 Dose: 500 mg Sodium Chloride (Saline Flush) 10 ml FLUSH ONETIME PRN PRN Reason: Keep Vein Open Last Admin: 11/18/19 17:18 Dose: 10 ml Trolamine Salicylate (Aspercreme 10%) 0 gm TOP Q2H PRN PRN Reason: Pain Discontinued Medications Acetaminophen (Tylenol) 650 mg PO Q4H PRN PRN Reason: Pain (Mild 1-3)/fever Last Admin: 11/19/19 16:03 Dose: 650 mg Albuterol/Ipratropium (Duoneb 3.0-0.5 Mg/3 Ml) 3 ml NEB ONETIME ONE Stop: 11/18/19 18:04 Last Admin: 11/18/19 18:20 Dose: 3 ml Albuterol/Ipratropium (Duoneb 3.0-0.5 Mg/3 Ml) 3 ml NEB ONETIME ONE Stop: 11/18/19 18:43 Last Admin: 11/18/19 19:32 Dose: 3 ml Cyclobenzaprine HCl (Flexeril) 5 mg PO TID PRN PRN Reason: pain/spasms Last Admin: 11/19/19 12:12 Dose: 5 mg Cyclobenzaprine HCl (Flexeril) 5 mg PO ONETIME ONE Stop: 11/19/19 13:57 Last Admin: 11/19/19 14:05 Dose: 5 mg Cyclobenzaprine HCl (Flexeril) 10 mg PO TID PRN PRN Reason: pain/muscle spasms Last Admin: 11/19/19 20:53 Dose: 10 mg Hydralazine HCl (Apresoline) 10 mg IVPUSH ONETIME ONE Stop: 11/18/19 19:49 Last Admin: 11/18/19 19:59 Dose: 10 mg Sodium Chloride (Normal Saline) 100 mls @ 60 mls/hr IV ASDIRECTED CHIP Last Admin: 11/18/19 17:18 Dose: 60 mls/hr Iopamidol (Isovue-370 (76%)) 100 ml IVPUSH ONETIME ONE Stop: 11/18/19 17:13 Last Admin: 11/18/19 17:18 Dose: 100 ml Ketorolac Tromethamine (Toradol) 30 mg IV Q8H PRN PRN Reason: Pain (moderate 4-6) Stop: 11/23/19 21:47 Last Admin: 11/19/19 04:28 Dose: 30 mg Ketorolac Tromethamine (Toradol) Confirm Administered Dose 30 mg .ROUTE .STK- MED ONE Stop: 11/18/19 22:02 Last Admin: 11/18/19 22:06 Dose: Not Given Methocarbamol (Robaxin) 500 mg PO Q8H PRN PRN Reason: Pain Last Admin: 11/19/19 10:36 Dose: 500 mg Methylprednisolone (Medrol) 12 mg PO BID@1800,2100 CHIP Stop: 11/19/19 21:01 Last Admin: 11/19/19 20:52 Dose: 12 mg Methylprednisolone (Medrol) 4 mg PO TID@0600,1300,1800 CHIP Stop: 11/20/19 18:01 Last Admin: 11/20/19 17:49 Dose: 4 mg Morphine Sulfate (Morphine) 2 mg IVPUSH Q4H PRN PRN Reason: Pain (severe 7-10) Sodium Chloride (Saline Flush) 10 ml FLUSH ASDIRECTED PRN PRN Reason: Keep Vein Open Last Admin: 11/18/19 16:19 Dose: 10 ml Sepsis Event Note - Evaluation Sepsis Screening Result: No Definite Risk - Focused Exam Vital Signs: Vital Signs Temp Pulse Resp BP Pulse Ox Pulse Ox 11/20/19 15:18 97.9 F 100 16 134/89 92 L 11/20/19 12:12 97.7 F 81 16 136/84 90 L 11/20/19 08:45 92 L 11/20/19 07:19 98.2 F 76 20 118/88 91 L Date Exam was Performed: 11/22/19 Time Exam was Performed: 15:23 - Problem List & Annotations (1) Ex-smoker SNOMED Code(s): 2997390 Code(s): Z87.891 - PERSONAL HISTORY OF NICOTINE DEPENDENCE Status: Acute Current Visit: Yes (2) Hypoxemia SNOMED Code(s): 951887598 Code(s): R09.02 - HYPOXEMIA Status: Acute Current Visit: Yes (3) Morbid (severe) obesity due to excess calories SNOMED Code(s): 132395400, 374904667 Code(s): E66.01 - MORBID (SEVERE) OBESITY DUE TO EXCESS CALORIES Status: Acute Current Visit: Yes (4) Open wound knee/leg with tendon involvment SNOMED Code(s): 033209414 Code(s): S81.009A - UNSPECIFIED OPEN WOUND, UNSPECIFIED KNEE, INITIAL ENCOUNTER; S81.809A - UNSPECIFIED OPEN WOUND, UNSPECIFIED LOWER LEG, INIT ENCNTR ; S91.009A - UNSPECIFIED OPEN WOUND, UNSPECIFIED ANKLE, INITIAL ENCOUNTER Status: Acute Current Visit: Yes (5) Sleep apnea SNOMED Code(s): 79337676 Code(s): G47.30 - SLEEP APNEA, UNSPECIFIED Status: Acute Current Visit: Yes (6) Uncontrolled hypertension SNOMED Code(s): 04930165, 05253173 Code(s): I10 - ESSENTIAL (PRIMARY) HYPERTENSION Status: Acute Current Visit: Yes (7) Cervical pain (neck) SNOMED Code(s): 19496045 Code(s): M54.2 - CERVICALGIA Status: Acute Current Visit: No (8) Sleep apnea in adult SNOMED Code(s): 73080032 Code(s): G47.33 - OBSTRUCTIVE SLEEP APNEA (ADULT) (PEDIATRIC) Status: Acute Current Visit: No (9) Obesity hypoventilation syndrome SNOMED Code(s): 047151992 Code(s): E66.2 - MORBID (SEVERE) OBESITY WITH ALVEOLAR HYPOVENTILATION Status: Acute Current Visit: Yes - Problem List Review Problem List Initiated/Reviewed/Updated: Yes - Plan Plan:: Hypoxemia Sleep apnea Obesity hypoventilation syndrome Ex smoker Morbid obesity Worsening shortness of breath on admission Does not appear to have an infectious process other than her leukocytosis however there is no left shift or other accompanying symptoms CTA chest reported negative as well as doppler of lower extremities so problem is not thrombotic Patient has not been formally diagnosed with sleep apnea however on nasal cannula her oxygenation decreased overnight to the mid to low 80s ABGs this AM still with hypoxemia Patient likely has KHUSHBOO superimposed with OHS and central sleep apnea Echocardiogram performed and pending results BiPAP oximetry still with multiple dips < 88% Procalcitonin negative PLAN - Continue incentive spirometer - F/U infectious work up - Echocardiogram ordered Uncontrolled hypertension BP trend 107-153/69-105 Likely has pulmonary hypertension PLAN - Continue home medications - PRN hydralazine 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
[2019-11-21] MEDS: Acetaminophen/HYDROcodone 325-5 MG Tab PO PRN ×3 (05:54→18:37)
[2019-11-21] MEDS: Cyclobenzaprine 10 MG Tab PO SCH ×3 (09:20→21:43)
[2019-11-21] MEDS: Enoxaparin 40 MG/0.4 ML Syringe SUBCUT SCH (09:20)
[2019-11-21 10:46] LABS: BORDETELLA PARAPERT IS1001 Not Detected (Not Detected)
[2019-11-22] MEDS: Acetaminophen/HYDROcodone 325-5 MG Tab PO PRN ×3 (06:31→18:42)
[2019-11-22] MEDS: Naproxen 500 MG Tab PO PRN (09:12)
[2019-11-22] MEDS: Enoxaparin 40 MG/0.4 ML Syringe SUBCUT SCH (09:13)
[2019-11-22] MEDS: Cyclobenzaprine 10 MG Tab PO SCH ×2 (09:13→14:55)
[2019-11-22] MEDS: Albuterol/Ipratropium 3.0-0.5 MG/3 ML Neb Soln NEB PRN (13:58)
--- NOTE | 2019-11-22 15:27 | PCM.PN ---
- General Info Date of Service: 11/21/19 Subjective Update: Feeling OK Still having shortness of breath Slept OK with BiPAP Tolerating diet - Patient Data Vitals - Most Recent: Last Vital Signs Temp 97.7 F 11/22/19 07:56 Pulse 76 11/22/19 07:56 Resp 16 11/22/19 07:56 BP 128/89 11/22/19 07:56 Pulse Ox 89 L 11/22/19 13:58 Weight - Most Recent: 121.699 kg I&O - Last 24 Hours: Intake & Output 11/22/19 11/22/19 11/22/19 06:59 14:59 22:59 Intake Total 800 240 Output Total 1400 Balance -600 240 Med Orders - Current: Current Medications Hydrocodone Bitart/Acetaminophen ([place] 325-5 Mg) 1 tab PO Q6H PRN PRN Reason: Pain Last Admin: 11/22/19 12:35 Dose: 1 tab Albuterol/Ipratropium (Duoneb 3.0-0.5 Mg/3 Ml) 3 ml NEB Q4H PRN PRN Reason: Shortness Of Breath/wheezing Last Admin: 11/22/19 13:58 Dose: 3 ml Cyclobenzaprine HCl (Flexeril) 10 mg PO TID [facility] Last Admin: 11/22/19 14:55 Dose: 10 mg Enoxaparin Sodium (Lovenox) 40 mg SUBCUT DAILY [facility] Last Admin: 11/22/19 09:13 Dose: 40 mg Methylprednisolone (Medrol) 4 mg PO TIDPC [facility] Stop: 11/22/19 19:01 Last Admin: 11/22/19 12:39 Dose: 4 mg Methylprednisolone (Medrol) 4 mg PO BID [facility] Stop: 11/23/19 21:01 Methylprednisolone (Medrol) 4 mg PO DAILY [facility] Stop: 11/24/19 09:01 Mupirocin (Bactroban Oint) 0 gm TOP ASDIRECTED [facility] Naproxen (Naprosyn) 500 mg PO Q12H PRN PRN Reason: Pain Last Admin: 11/22/19 09:12 Dose: 500 mg Sodium Chloride (Saline Flush) 10 ml FLUSH ONETIME PRN PRN Reason: Keep Vein Open Last Admin: 11/18/19 17:18 Dose: 10 ml Trolamine Salicylate (Aspercreme 10%) 0 gm TOP Q2H PRN PRN Reason: Pain Discontinued Medications Acetaminophen (Tylenol) 650 mg PO Q4H PRN PRN Reason: Pain (Mild 1-3)/fever Last Admin: 11/19/19 16:03 Dose: 650 mg Albuterol/Ipratropium (Duoneb 3.0-0.5 Mg/3 Ml) 3 ml NEB ONETIME ONE Stop: 11/18/19 18:04 Last Admin: 11/18/19 18:20 Dose: 3 ml Albuterol/Ipratropium (Duoneb 3.0-0.5 Mg/3 Ml) 3 ml NEB ONETIME ONE Stop: 11/18/19 18:43 Last Admin: 11/18/19 19:32 Dose: 3 ml Cyclobenzaprine HCl (Flexeril) 5 mg PO TID PRN PRN Reason: pain/spasms Last Admin: 11/19/19 12:12 Dose: 5 mg Cyclobenzaprine HCl (Flexeril) 5 mg PO ONETIME ONE Stop: 11/19/19 13:57 Last Admin: 11/19/19 14:05 Dose: 5 mg Cyclobenzaprine HCl (Flexeril) 10 mg PO TID PRN PRN Reason: pain/muscle spasms Last Admin: 11/19/19 20:53 Dose: 10 mg Hydralazine HCl (Apresoline) 10 mg IVPUSH ONETIME ONE Stop: 11/18/19 19:49 Last Admin: 11/18/19 19:59 Dose: 10 mg Sodium Chloride (Normal Saline) 100 mls @ 60 mls/hr IV ASDIRECTED CHIP Last Admin: 11/18/19 17:18 Dose: 60 mls/hr Iopamidol (Isovue-370 (76%)) 100 ml IVPUSH ONETIME ONE Stop: 11/18/19 17:13 Last Admin: 11/18/19 17:18 Dose: 100 ml Ketorolac Tromethamine (Toradol) 30 mg IV Q8H PRN PRN Reason: Pain (moderate 4-6) Stop: 11/23/19 21:47 Last Admin: 11/19/19 04:28 Dose: 30 mg Ketorolac Tromethamine (Toradol) Confirm Administered Dose 30 mg .ROUTE .STK- MED ONE Stop: 11/18/19 22:02 Last Admin: 11/18/19 22:06 Dose: Not Given Methocarbamol (Robaxin) 500 mg PO Q8H PRN PRN Reason: Pain Last Admin: 11/19/19 10:36 Dose: 500 mg Methylprednisolone (Medrol) 12 mg PO BID@1800,2100 [facility] Stop: 11/19/19 21:01 Last Admin: 11/19/19 20:52 Dose: 12 mg Methylprednisolone (Medrol) 4 mg PO TID@0600,1300,1800 [facility] Stop: 11/20/19 18:01 Last Admin: 11/20/19 17:49 Dose: 4 mg Methylprednisolone (Medrol) 8 mg PO BEDTIME [facility] Stop: 11/20/19 21:01 Last Admin: 11/20/19 20:50 Dose: 8 mg Methylprednisolone (Medrol) 4 mg PO QID [facility] Stop: 11/21/19 21:01 Last Admin: 11/21/19 21:43 Dose: 4 mg Morphine Sulfate (Morphine) 2 mg IVPUSH Q4H PRN PRN Reason: Pain (severe 7-10) Sodium Chloride (Saline Flush) 10 ml FLUSH ASDIRECTED PRN PRN Reason: Keep Vein Open Last Admin: 11/18/19 16:19 Dose: 10 ml - Exam Physical Findings Comments:: Physical exam confounded by body habitus Quality Assessment: Supplemental Oxygen General: Alert, Oriented, Cooperative, Mild Distress HEENT: Pupils Equal, Pupils Reactive, Mucous Membr. Moist/[place] Neck: Supple, Trachea Midline, No Thyromegaly Lungs: Decreased Breath Sounds, Stridor. No: Crackles, Rales, Rhonchi, Wheezing Cardiovascular: Regular Rate, Regular Rhythm. No: Murmurs, Gallops, Rubs GI/Abdominal Exam: Distended. No: Guarding, Rigid, Rebound, Tender Extremities: Pedal Edema (+2), Other (wound dressing without any soiling) Wound/Incisions: Dressing Dry and Intact, No Drainage Neurological: No New Focal Deficit Sepsis Event Note - Evaluation Sepsis Screening Result: No Definite Risk - Focused Exam Vital Signs: Vital Signs Temp Pulse Resp BP Pulse Ox Pulse Ox Pulse Ox 11/22/19 13:58 89 L 11/22/19 13:07 92 L 11/22/19 07:56 97.7 F 76 16 128/89 93 L Date Exam was Performed: 12/17/19 Time Exam was Performed: 14:50 - Problem List & Annotations (1) Ex-smoker SNOMED Code(s): 8874274 Code(s): Z87.891 - PERSONAL HISTORY OF NICOTINE DEPENDENCE Status: Acute (2) Hypoxemia SNOMED Code(s): 784718302 Code(s): R09.02 - HYPOXEMIA Status: Acute (3) Morbid (severe) obesity due to excess calories SNOMED Code(s): 996515702, 969182174 Code(s): E66.01 - MORBID (SEVERE) OBESITY DUE TO EXCESS CALORIES Status: Acute (4) Open wound knee/leg with tendon involvment SNOMED Code(s): 707457837 Code(s): S81.009A - UNSPECIFIED OPEN WOUND, UNSPECIFIED KNEE, INITIAL ENCOUNTER; S81.809A - UNSPECIFIED OPEN WOUND, UNSPECIFIED LOWER LEG, INIT ENCNTR ; S91.009A - UNSPECIFIED OPEN WOUND, UNSPECIFIED ANKLE, INITIAL ENCOUNTER Status: Acute (5) Sleep apnea SNOMED Code(s): 02450704 Code(s): G47.30 - SLEEP APNEA, UNSPECIFIED Status: Acute (6) Uncontrolled hypertension SNOMED Code(s): 47142113, 53042699 Code(s): I10 - ESSENTIAL (PRIMARY) HYPERTENSION Status: Acute (7) Cervical pain (neck) SNOMED Code(s): 83552174 Code(s): M54.2 - CERVICALGIA Status: Acute (8) Sleep apnea in adult SNOMED Code(s): 02872472 Code(s): G47.33 - OBSTRUCTIVE SLEEP APNEA (ADULT) (PEDIATRIC) Status: Acute (9) Obesity hypoventilation syndrome SNOMED Code(s): 258459639 Code(s): E66.2 - MORBID (SEVERE) OBESITY WITH ALVEOLAR HYPOVENTILATION Status: Acute - Problem List Review Problem List Initiated/Reviewed/Updated: Yes - Plan Plan:: Hypoxemia Sleep apnea Obesity hypoventilation syndrome Ex smoker Morbid obesity Worsening shortness of breath on admission Does not appear to have an infectious process other than her leukocytosis however there is no left shift or other accompanying symptoms CTA chest reported negative as well as doppler of lower extremities so problem is not thrombotic Patient has not been formally diagnosed with sleep apnea however on nasal cannula her oxygenation decreased overnight to the mid to low 80s ABGs this AM still with hypoxemia Patient likely has [id number] superimposed with OHS and central sleep apnea Echocardiogram performed and pending results BiPAP oximetry still with multiple dips < 88% Procalcitonin negative PLAN - Continue incentive spirometer - F/U infectious work up - Echocardiogram ordered Uncontrolled hypertension BP trend 107-153/69-105 Likely has pulmonary hypertension PLAN - Continue home medications - PRN hydralazine 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
[2019-11-22 15:56] VITALS: BP 121/73; PULSE 96
--- NOTE | 2019-11-22 15:56 | PCM.DCSUM1 ---
Discharge Summary - Hospital Course HPI Initial Comments: Patient is a 64-year-old female who presents with complaints of shortness of breath and orthopnea that began last night. Patient states when she went to bed last night she started becoming more short of breath. She found herself having to sit up at the edge of the bed number of times. Eventually around 4: 00 this morning she went out to the recliner to sleep because she could breathe easier sitting upright. Patient was seen in our emergency department yesterday for right shoulder pain. She was started on prednisone and meloxicam which she started yesterday morning. She denies any feeling of swelling in her mouth or. She has no rash or pruritus. Patient also notes that since this morning she has been getting the occasional "twinge" of pain in her left chest. This pain only lasts a couple seconds and then goes away but does return episodically. She reports that she had an appointment with her primary care provider, Dr. Olmstead, on Friday. She states her blood pressure at that time was higher than normal and that her oxygen saturation was lower than normal. Patient states her normal blood pressures are normally around 110 systolic, however she has been in the 150s for most of her blood pressure checks this week. She states that her oxygen saturations are normally around 96 or 97%. Her oxygen saturation on triage today is 90 to 92%. Oxygen saturation yesterday was also in the low 90. She has no known history of hypertension or congestive heart failure. She has no chronic lung pathology. Patient states that she does have an albuterol inhaler at home from when she had a previous episode of bronchitis. Her also has an albuterol nebulizer. She states that around 1:00 this morning she gave herself a treatment of the nebulizer and did not note any improvement in her symptoms. Of note, patient is recovering from a cellulitis of her right lower extremity. She is currently going to physical therapy for wound care. She also recently had a venous Doppler ultrasound of her left lower extremity due to pain. 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 Denies any diaphoresis at any point. - Discharge Data Discharge Date: 11/22/19 Discharge Disposition: Home, Self-Care 01 Condition: Good - Referral to Home Health Primary Care Physician: Maco Chavez MD - Discharge Diagnosis/Problem(s) (1) Ex-smoker SNOMED Code(s): 2350058 ICD Code: Z87.891 - PERSONAL HISTORY OF NICOTINE DEPENDENCE Status: Acute (2) Hypoxemia SNOMED Code(s): 652410464 ICD Code: R09.02 - HYPOXEMIA Status: Acute (3) Morbid (severe) obesity due to excess calories SNOMED Code(s): 206637161, 400517102 ICD Code: E66.01 - MORBID (SEVERE) OBESITY DUE TO EXCESS CALORIES Status: Acute (4) Open wound knee/leg with tendon involvment SNOMED Code(s): 683780898 ICD Code: S81.009A - UNSPECIFIED OPEN WOUND, UNSPECIFIED KNEE, INITIAL ENCOUNTER; S81.809A - UNSPECIFIED OPEN WOUND, UNSPECIFIED LOWER LEG, INIT ENCNTR ; S91.009A - UNSPECIFIED OPEN WOUND, UNSPECIFIED ANKLE, INITIAL ENCOUNTER Status: Acute (5) Sleep apnea SNOMED Code(s): 29971326 ICD Code: G47.30 - SLEEP APNEA, UNSPECIFIED Status: Acute (6) Uncontrolled hypertension SNOMED Code(s): 78408002, 12409817 ICD Code: I10 - ESSENTIAL (PRIMARY) HYPERTENSION Status: Acute (7) Cervical pain (neck) SNOMED Code(s): 39558143 ICD Code: M54.2 - CERVICALGIA Status: Acute (8) Sleep apnea in adult SNOMED Code(s): 16878136 ICD Code: G47.33 - OBSTRUCTIVE SLEEP APNEA (ADULT) (PEDIATRIC) Status: Acute (9) Obesity hypoventilation syndrome SNOMED Code(s): 481099283 ICD Code: E66.2 - MORBID (SEVERE) OBESITY WITH ALVEOLAR HYPOVENTILATION Status: Acute - Patient Summary/Data Consults: Consultations 11/18/19 21:46 OT Evaluation and Treatment [CONS] Routine PT Evaluation and Treatment [CONS] Routine Respiratory Care Assess and Treatment [CONS] Routine 11/22/19 08:53 PT Evaluation and Treatment [CONS] Routine Hospital Course: Patient came in with worsening shortness of breath and muscular pain Muscular pain was controlled with combination of NSAIDS Respiratory status with minimal changes during admission Echocardiogram reported normal Overnight pulse oximetry positive Unable to qualify for CPAP, will need outpatient sleep study - Discharge Plan Prescriptions/Med Rec: Acetaminophen/HYDROcodone [[place] 325-5 MG] 1 tab PO Q6H PRN #14 tablet PRN Reason: Pain Cyclobenzaprine [Flexeril] 10 mg PO TID #9 tablet methylPREDNISolone [Medrol] 4 mg PO DAILY #1 tablet methylPREDNISolone [Medrol] 4 mg PO TIDPC #3 tablet methylPREDNISolone [Medrol] 4 mg PO BID #2 tablet Naproxen [Naprosyn] 500 mg PO Q12H PRN #10 tablet PRN Reason: Pain Trolamine Salicylate/Aloe Vera [Aspercreme 10%] 2 gm TOP Q2H PRN #3 tube PRN Reason: Pain Home Medications: Home Meds Melaluca Multi Meño. 1 pkt PO BID 06/09/16 [History] Cholecalciferol (Vitamin D3) [Vitamin D3] 1 tab PO DAILY 11/21/16 [History] Vitamin K2 1 tab PO DAILY 11/21/16 [History] Albuterol Sulfate [Proventil Hfa] 2 puff INH Q4H PRN 11/17/19 [History] Hydrocodone/Acetaminophen [Hydrocodon-Acetaminophen 5-325] 1 tab PO Q6H PRN [History] Meloxicam 15 mg PO DAILY #7 tablet 11/17/19 [Rx] Mupirocin Oint [Bactroban Oint] 1 applic TOP ASDIRECTED 11/17/19 [History] Wister-3S/DHA/Epa/Fish Oil/D3 [Wister Essentials] 3 tsp PO DAILY 11/17/19 [History ] predniSONE [Prednisone] 20 mg PO ASDIRECTED #15 tablet 11/17/19 [Rx] Acetaminophen/HYDROcodone [[place] 325-5 MG] 1 tab PO Q6H PRN #14 tablet 11/22/19 [Rx] Cyclobenzaprine [Flexeril] 10 mg PO TID #9 tablet 11/22/19 [Rx] Naproxen [Naprosyn] 500 mg PO Q12H PRN #10 tablet 11/22/19 [Rx] Trolamine Salicylate/Aloe Vera [Aspercreme 10%] 2 gm TOP Q2H PRN #3 tube [Rx] methylPREDNISolone [Medrol] 4 mg PO BID #2 tablet 11/22/19 [Rx] methylPREDNISolone [Medrol] 4 mg PO DAILY #1 tablet 11/22/19 [Rx] methylPREDNISolone [Medrol] 4 mg PO TIDPC #3 tablet 11/22/19 [Rx] Patient Handouts: Hypoxia, Home Oxygen Use, Adult, Sleep Apnea, [id number] Forms: ED Department Discharge Referrals: Maco Chavez MD [Primary Care Provider] - (Please call to schedule a follow-up appointment with your primary care provider in 5-7 days. ) - Discharge Summary/Plan Comment DC Time >30 min.: Yes - General Info Date of Service: 11/22/19 Subjective Update: Feeling OK Interval improvement of SOB Slept OK with BiPAP Tolerating diet - Patient Data Vitals - Most Recent: Last Vital Signs Temp 97.9 F 11/22/19 15:12 Pulse 96 11/22/19 15:12 Resp 12 11/22/19 15:12 BP 121/73 11/22/19 15:12 Pulse Ox 84 L 11/22/19 15:30 Weight - Most Recent: 121.699 kg I&O - Last 24 hours: Intake & Output 11/22/19 11/22/19 11/22/19 06:59 14:59 22:59 Intake Total 800 240 Output Total 1400 Balance -600 240 Med Orders - Current: Current Medications Hydrocodone Bitart/Acetaminophen ([place] 325-5 Mg) 1 tab PO Q6H PRN PRN Reason: Pain Last Admin: 11/22/19 12:35 Dose: 1 tab Albuterol/Ipratropium (Duoneb 3.0-0.5 Mg/3 Ml) 3 ml NEB Q4H PRN PRN Reason: Shortness Of Breath/wheezing Last Admin: 11/22/19 13:58 Dose: 3 ml Cyclobenzaprine HCl (Flexeril) 10 mg PO TID [facility] Last Admin: 11/22/19 14:55 Dose: 10 mg Enoxaparin Sodium (Lovenox) 40 mg SUBCUT DAILY [facility] Last Admin: 11/22/19 09:13 Dose: 40 mg Methylprednisolone (Medrol) 4 mg PO TIDPC [facility] Stop: 11/22/19 19:01 Last Admin: 11/22/19 12:39 Dose: 4 mg Methylprednisolone (Medrol) 4 mg PO BID [facility] Stop: 11/23/19 21:01 Methylprednisolone (Medrol) 4 mg PO DAILY [facility] Stop: 11/24/19 09:01 Mupirocin (Bactroban Oint) 0 gm TOP ASDIRECTED CHIP Naproxen (Naprosyn) 500 mg PO Q12H PRN PRN Reason: Pain Last Admin: 11/22/19 09:12 Dose: 500 mg Sodium Chloride (Saline Flush) 10 ml FLUSH ONETIME PRN PRN Reason: Keep Vein Open Last Admin: 11/18/19 17:18 Dose: 10 ml Trolamine Salicylate (Aspercreme 10%) 0 gm TOP Q2H PRN PRN Reason: Pain Discontinued Medications Acetaminophen (Tylenol) 650 mg PO Q4H PRN PRN Reason: Pain (Mild 1-3)/fever Last Admin: 11/19/19 16:03 Dose: 650 mg Albuterol/Ipratropium (Duoneb 3.0-0.5 Mg/3 Ml) 3 ml NEB ONETIME ONE Stop: 11/18/19 18:04 Last Admin: 11/18/19 18:20 Dose: 3 ml Albuterol/Ipratropium (Duoneb 3.0-0.5 Mg/3 Ml) 3 ml NEB ONETIME ONE Stop: 11/18/19 18:43 Last Admin: 11/18/19 19:32 Dose: 3 ml Cyclobenzaprine HCl (Flexeril) 5 mg PO TID PRN PRN Reason: pain/spasms Last Admin: 11/19/19 12:12 Dose: 5 mg Cyclobenzaprine HCl (Flexeril) 5 mg PO ONETIME ONE Stop: 11/19/19 13:57 Last Admin: 11/19/19 14:05 Dose: 5 mg Cyclobenzaprine HCl (Flexeril) 10 mg PO TID PRN PRN Reason: pain/muscle spasms Last Admin: 11/19/19 20:53 Dose: 10 mg Hydralazine HCl (Apresoline) 10 mg IVPUSH ONETIME ONE Stop: 11/18/19 19:49 Last Admin: 11/18/19 19:59 Dose: 10 mg Sodium Chloride (Normal Saline) 100 mls @ 60 mls/hr IV ASDIRECTED CHIP Last Admin: 11/18/19 17:18 Dose: 60 mls/hr Iopamidol (Isovue-370 (76%)) 100 ml IVPUSH ONETIME ONE Stop: 11/18/19 17:13 Last Admin: 11/18/19 17:18 Dose: 100 ml Ketorolac Tromethamine (Toradol) 30 mg IV Q8H PRN PRN Reason: Pain (moderate 4-6) Stop: 11/23/19 21:47 Last Admin: 11/19/19 04:28 Dose: 30 mg Ketorolac Tromethamine (Toradol) Confirm Administered Dose 30 mg .ROUTE .STK- MED ONE Stop: 11/18/19 22:02 Last Admin: 11/18/19 22:06 Dose: Not Given Methocarbamol (Robaxin) 500 mg PO Q8H PRN PRN Reason: Pain Last Admin: 11/19/19 10:36 Dose: 500 mg Methylprednisolone (Medrol) 12 mg PO BID@1800,2100 [facility] Stop: 11/19/19 21:01 Last Admin: 11/19/19 20:52 Dose: 12 mg Methylprednisolone (Medrol) 4 mg PO TID@0600,1300,1800 [facility] Stop: 11/20/19 18:01 Last Admin: 11/20/19 17:49 Dose: 4 mg Methylprednisolone (Medrol) 8 mg PO BEDTIME [facility] Stop: 11/20/19 21:01 Last Admin: 11/20/19 20:50 Dose: 8 mg Methylprednisolone (Medrol) 4 mg PO QID [facility] Stop: 11/21/19 21:01 Last Admin: 11/21/19 21:43 Dose: 4 mg Morphine Sulfate (Morphine) 2 mg IVPUSH Q4H PRN PRN Reason: Pain (severe 7-10) Sodium Chloride (Saline Flush) 10 ml FLUSH ASDIRECTED PRN PRN Reason: Keep Vein Open Last Admin: 11/18/19 16:19 Dose: 10 ml - Exam Physical Findings Comments:: Physical exam confounded by body habitus Quality Assessment: Supplemental Oxygen General: Alert, Oriented, Cooperative, Mild Distress HEENT: Pupils Equal, Pupils Reactive, Mucous Membr. Moist/[place] Neck: Supple, Trachea Midline, No Thyromegaly Lungs: Decreased Breath Sounds, Stridor. No: Crackles, Rales, Rhonchi, Wheezing Cardiovascular: Regular Rate, Regular Rhythm. No: Murmurs, Gallops, Rubs GI/Abdominal Exam: Distended. No: Guarding, Rigid, Rebound, Tender Extremities: Pedal Edema (+2), Other (wound dressing without any soiling) Wound/Incisions: Dressing Dry and Intact, No Drainage Neurological: No New Focal Deficit
[2019-11-22] MEDS ORDERED: Pneumococcal Polyvalent-23 Vaccine 0.5 ML SDV IM ONE (16:30)
== END 2019-11-22 19:03 | disposition home or self-care (01) | DRG 144 ==
LOC: JD.ED 14:31 → JD.MS 21:24 → OBSVTOIN 11-20 17:07
PROVIDERS: ADMIT Internal Medicine; ATTEND Internal Medicine
DX: R09.02 Hypoxemia (principal); E66.01 Morbid (severe) obesity due to excess calories; G47.33 Obstructive sleep apnea (adult) (pediatric); S81.801A Unspecified open wound, right lower leg, initial encounter; S81.001A Unspecified open wound, right knee, initial encounter; M54.2 Cervicalgia; I10 Essential (primary) hypertension; Z87.891 Personal history of nicotine dependence; Z68.41 Body mass index [BMI] 40.0-44.9, adult; Z79.52 Long term (current) use of systemic steroids; Z79.899 Other long term (current) drug therapy; Z90.49 Acquired absence of other specified parts of digestive tract; X58.XXXA Exposure to other specified factors, initial encounter
CPT/HCPCS: 36415; 36600; 71046; 71046-26; 71275; 71275-26; 80048; 80053; 82803; 83036; 83735; 83880; 84100; 84145; 84484; 85025; 85379; 86038; 86140; 86738; 87486; 87581; 87632; 87798; 87804; 90662; 90732; 93005; 93306; 93970; 93970-26; 94640; 94660; 94761; 94762; 96372; 96374; 96375; 96376; 97116-GP; 97161-GP; 97165-GO; 97597-GP; 99220; 99232; 99239; 99284; 99285-25; A9270-GY; G0008; G0009; G0378; J0360; J1650; J1885; J7050; J7620-GY; Q9967